=== PATIENT | male | born 1955 | race Hispanic/Latino ===

== ENCOUNTER 2018-01-11 06:48 | Inpatient (IN) | payer OTHER ==
[2018-01-11 06:49] VITALS: BMI 46.2
[2018-01-11] MEDS ORDERED: Sodium Chloride 0.9% 1,000 ML IV SCH (07:30)
--- NOTE | 2018-01-11 07:56 | C.PDOC ---
History Of Present Illness 62 year old male with PMHx of CHF, COPD, HTN, and chronic back pain presents to the ED complaining of "moderate back pain" rated 3/10. Reports "the people in my house are stealing my medications". Requesting Aspirin for pain. Denies any weakness, numbness, bowel or bladder dysfunction, or urinary symptoms. Requesting his sister in law to be called to take him home. Time Seen by Provider: 01/11/18 07:32 Chief Complaint (Nursing): Back Pain History Per: Patient History/Exam Limitations: no limitations Onset/Duration Of Symptoms: Days Current Symptoms Are (Timing): Still Present Quality Of Discomfort: "Pain" Severity: Moderate Pain Scale Rating Of: 3 Previous Symptoms: Chronic Pain Associated Symptoms: None Past Medical History Reviewed: Historical Data, Nursing Documentation, Vital Signs Vital Signs: Last Vital Signs Temp 97.9 F 01/11/18 06:53 Pulse 90 01/11/18 06:53 Resp 20 01/11/18 06:53 BP 116/62 01/11/18 06:53 Pulse Ox 95 01/11/18 06:53 - Medical History PMH: COPD, HTN, Sleep Apnea, Chronic Pain (Back Pain) Surgical History: Tonsillectomy Family History: States: No Known Family Hx - Social History Hx Tobacco Use: No Hx Alcohol Use: No (stopped 5 years ago) Hx Substance Use: No - Immunization History Hx Tetanus Toxoid Vaccination: No Hx Influenza Vaccination: No Hx Pneumococcal Vaccination: No Review Of Systems Except As Marked, All Systems Reviewed And Found Negative. Constitutional: Negative for: Fever, Chills Gastrointestinal: Negative for: Nausea, Vomiting, Diarrhea Genitourinary: Negative for: Dysuria, Incontinence, Hematuria Musculoskeletal: Positive for: Back Pain Neurological: Negative for: Weakness, Numbness Physical Exam - Physical Exam Appears: Non-toxic, No Acute Distress, Unkempt Skin: Warm, Dry, No Rash Head: Atraumatic, Normacephalic Eye(s): bilateral: Normal Inspection Nose: Normal Oral Mucosa: Dry Neck: Normal ROM, Supple Chest: Symmetrical Cardiovascular: Rhythm Regular Respiratory: No Rales, No Rhonchi, No Wheezing, Other (ormal inspiratory effort, Lungs clear to auscultation) Gastrointestinal/Abdominal: Soft, No Tenderness Back: No CVA Tenderness, No Vertebral Tenderness, No Paraspinal Tenderness Extremity: Normal ROM, Pedal Edema, Other (erythema noted to b/l lower extremities, more on the right. scattered abrasions along left lateral leg ) Neurological/Psych: Oriented x3, Normal Speech Gait: Steady ED Course And Treatment - Laboratory Results Result Diagrams: 01/13/18 11:24 01/15/18 11:25 ECG: Interpreted By Me, Viewed By Me ECG Rhythm: Sinus Rhythm ECG Interpretation: No Changes From Prior Interpretation Of ECG: Normal intervals. IVCD Rate From EC O2 Sat by Pulse Oximetry: 95 (RA) Pulse Ox Interpretation: Normal - Radiology CXR: Interpreted by Me, Viewed By Me CXR Interpretation: Yes: No Acute Disease, Other (Rotated) - Other Rad LS Spine X-Ray: Viewed By Me, Read By Radiologist Interpretation: IMPRESSION: No acute findings related to/accounting for the clinical presentation. No significant interval change compared to the prior examination(s). - CT Scan/US CT Head Other Rad Studies (CT/US): Read By Radiologist, Radiology Report Reviewed CT/US Interpretation: IMPRESSION: Nonspecific white matter changes. Tiny chronic appearing left basal ganglia lacunar infarct. Small opacification/fluid within left mastoid air cells. Correlate clinically for history of mastoiditis. Medical Decision Making Medical Decision Making: Plan - EKG - CXR - Head CT - Tylenol 975mg PO - XR LS spine - Crisis Eval 0810 Attempting to call sister in law to pick patient up. 0900 ED nurse spoke with in on the phone. States she is not able to pick him up because she is out of state. Case management called. 1015 Case management by bedside evaluating patient. Case Mgmt spoke with sister in law who stated there is no one to take care of patient at home. She also said he gets treated at [facility] for renal cell carcinoma with lung metastasis and is supposed to have a home health aide but he does not qualify for medicaid. Case Mgmt recommended to order labs. 0205 Duplex tests ordered for B/L lower extremities. Patient refused the one on the left. [address] Fofana, Medicine. Agrees to admit patient under his service. Disposition Counseled Patient/Family Regarding: Studies Performed, Diagnosis - Disposition Disposition: HOSPITALIZED Disposition Time: 14:13 Condition: STABLE - Clinical Impression Clinical Impression: Low back pain, Dehydration, Renal cancer - Scribe Statement The provider has reviewed the documentation as recorded by the Scribe Leigh Cunningham All medical record entries made by the Scribe were at my direction and personally dictated by me. I have reviewed the chart and agree that the record accurately reflects my personal performance of the history, physical exam, medical decision making, and the department course for this patient. I have also personally directed, reviewed, and agree with the discharge instructions and disposition.
[2018-01-11 10:52] LABS: BASO # 0.1 K/uL (0.0-0.2); BASO % 1.3 % (0.0-2.0); EOS # 0.1 K/uL (0.0-0.7); EOS % 1.4 % (0.0-4.0); HEMOGLOBIN 12.9 g/dL (12.0-18.0); LYMPH # 1.4 K/uL (1.0-4.3); LYMPH % 15.9 % (20.0-40.0); MEAN CELL VOLUME 84.3 fL (80.0-94.0); MEAN CORPUSCULAR HEMOGLOBIN 28.6 pg (27.0-31.0); MEAN CORPUSCULAR HGB CONC 33.9 g/dL (33.0-37.0); MEAN PLATELET VOLUME 7.7 fL (7.2-11.7); MONO # 0.8 K/uL (0.0-0.8); MONO % 9.3 % (0.0-10.0); NEUT # 6.1 K/uL (1.8-7.0); NEUT % 72.1 % (50.0-75.0); NRBC % 0.1 % (0.0-2.0); RBC 4.49 Mil/uL (4.40-5.90); RED CELL DISTRIBUTION WIDTH 14.9 % (11.5-14.5); WHITE BLOOD COUNT 8.5 K/uL (4.8-10.8)
[2018-01-11 11:46] LABS: GRANULAR CAST 1 /lpf (0-1); SQUAMOUS EPITHIAL < 1 /hpf (0-5); URINE BACTERIA OCC (<OCC); URINE BILIRUBIN NEGATIVE (NEGATIVE); URINE BLOOD 2+ (NEGATIVE); URINE CLARITY Hazy (Clear); URINE COLOR Yellow (YELLOW); URINE GLUCOSE (UA) NORMAL (Normal); URINE LEUKOCYTE ESTERASE NEG Leu/uL (Negative); URINE PROTEIN 1+ mg/dL (NEGATIVE); URINE UROBILINOGEN NORMAL mg/dL (0.2-1.0)
[2018-01-11 11:51] LABS: BLOOD UREA NITROGEN 31 mg/dL (9-20); GFR NON-AFRICAN AMERICAN 38
[2018-01-11 11:52] LABS: ALB/GLOB RATIO 1.1 (1.0-2.1); ALBUMIN 3.8 g/dL (3.5-5.0); ALT/SGPT 116 U/L (21-72); AST/SGOT 143 U/L (17-59); CALCIUM 9.2 mg/dl (8.6-10.4)
[2018-01-11 11:56] LABS: ACETAMINOPHEN < 10.0 ug/mL (10.0-30.0); SALICYLATE < 1.0 [, mg/dL 1]
[2018-01-11 12:18] LABS: BARBITURATES, UR NEGATIVE (NEGATIVE); BENZODIAZEPINES, UR NEGATIVE (NEGATIVE)
[2018-01-11 12:19] LABS: OPIATES, UR POSITIVE (NEGATIVE); PHENCYCLIDINE, UR NEGATIVE (NEGATIVE)
--- NOTE | 2018-01-11 12:48 | CT ---
Date of service: 01/11/2018 PROCEDURE: CT HEAD WITHOUT CONTRAST. HISTORY: ams COMPARISON: None available. TECHNIQUE: Axial computed tomography images were obtained through the head/brain without intravenous contrast. Radiation dose: Total exam DLP = 1483.31 mGy-cm. This CT exam was performed using one or more of the following dose reduction techniques: Automated exposure control, adjustment of the mA and/or kV according to patient size, and/or use of iterative reconstruction technique. FINDINGS: HEMORRHAGE: No intracranial hemorrhage. BRAIN: No mass effect or edema. Tiny chronic appearing left basal ganglia lacunar infarct. Scattered periventricular and subcortical white matter hypodensities, which are nonspecific, but often seen with chronic microvascular ischemic disease. Please note that MRI with diffusion imaging is more sensitive in the detection of acute ischemic event. VENTRICLES: No hydrocephalus. CALVARIUM: Unremarkable. PARANASAL SINUSES: Mucosal polyp/retention cyst within the left maxillary sinus. MASTOID AIR CELLS: Small fluid/opacification within the left mastoid air cells. The right mastoid air cells appear grossly clear. OTHER FINDINGS: None. IMPRESSION: Nonspecific white matter changes. Tiny chronic appearing left basal ganglia lacunar infarct. Small opacification/fluid within left mastoid air cells. Correlate clinically for history of mastoiditis.
--- NOTE | 2018-01-11 14:37 | RAD ---
Date of service: 01/11/2018 PROCEDURE: CHEST RADIOGRAPH, 1 VIEW HISTORY: Detox/Psy COMPARISON: 09/17/2013 FINDINGS: LUNGS: Clear. PLEURA: No pneumothorax or pleural fluid seen. CARDIOVASCULAR: No aortic atherosclerotic calcification present. Cardiomegaly. No evidence of acute, significant cardiovascular disease. OSSEOUS STRUCTURES: No significant abnormalities. VISUALIZED UPPER ABDOMEN: Normal. OTHER FINDINGS: None. IMPRESSION: No active disease. No acute/significant interval changes. Concordant results with the preliminary interpretation rendered by the emergency department physician procedure.
--- NOTE | 2018-01-11 14:44 | RAD ---
Date of service: 01/11/2018 PROCEDURE: Radiographs of the Lumbar Spine. HISTORY: pain COMPARISON: 10/21/2014 CT abdomen and pelvis includes lumbar spine FINDINGS: BONES: Loss of height vertebral bodies apparent on the current study unchanged compared to the prior study. DISC SPACES: Stable degenerative changes lumbar spine including vacuum disc phenomenon L4-5. OTHER FINDINGS: Calcified nonaneurysmal abdominal aorta. IMPRESSION: No acute findings related to/accounting for the clinical presentation. No significant interval change compared to the prior examination(s).
--- NOTE | 2018-01-11 15:54 | CP.PCM.PN ---
Subjective - Date & Time of Evaluation Date of Evaluation: 01/11/18 Time of Evaluation: 15:50 - Subjective Subjective: This is a 62 yo male with past medical hx of renal cell carcinoma with mets, morbid obesity, chronic back pain, diabetes, hypertension, dyslipidemia, presenting with acute on chronic low back pain. Pt is an unreliable historian. He has a history of kidney cancer. He has had a right nephrectomy. He has not had good follow up. He was recently being evaluated at [facility]. His primary care doctor is Dr. Ortiz. He last saw a few months ago. PMH: renal cell carcinoma with mets, diagnosed in 2008 morbid obesity, likely metabolic syndrome, dm, htn, dyslipidemia PSH: right nephrectomy Allergies: NKDA FH: Denies Home meds: pain medication, lisinopril, gabapentin, metformin, flexeril Social hx: Former smoker. Former drinker. Denies drug use. Objective - Vital Signs/Intake and Output Vital Signs (last 24 hours): Temp Pulse Resp BP Pulse Ox 98.2 F 95 H 17 122/63 95 01/11/18 15:14 01/11/18 15:14 01/11/18 15:14 01/11/18 15:14 01/11/18 15:21 - Medications Medications: Current Medications Aspirin (Ecotrin) 81 mg PO DAILY BENNY Clopidogrel Bisulfate (Plavix) 75 mg PO DAILY BENNY Pantoprazole Sodium (Protonix Inj) 40 mg IVP DAILY BENNY - Labs Labs: 01/11/18 10:44 01/11/18 10:44 - Constitutional Appears: Unkempt, Chronically Ill - Head Exam Head Exam: ATRAUMATIC, NORMAL INSPECTION, NORMOCEPHALIC - Eye Exam Eye Exam: EOMI - ENT Exam ENT Exam: Mucous Membranes Moist - Respiratory Exam Respiratory Exam: absent: Respiratory Distress - Cardiovascular Exam Cardiovascular Exam: +S1, +S2 - GI/Abdominal Exam GI & Abdominal Exam: Soft, Normal Bowel Sounds. absent: Tenderness - Extremities Exam Extremities Exam: absent: Full ROM, Normal Inspection Additional comments: positive stasis dermatitis - Back Exam Back Exam: NORMAL INSPECTION - Neurological Exam Neurological Exam: Alert, Awake, CN II-XII Intact, Oriented x3 - Psychiatric Exam Psychiatric exam: Flat Affect - Skin Skin Exam: Dry, Intact, Normal Color, Warm Assessment and Plan - Assessment and Plan (Free Text) Assessment: This is a 62 yo male with 1. Back pain -PT/OT 2. stasis dermatitis/PVD -dopplers pending -vascular sx consult. Dr. Reyes. recs appreciated. 3. hx of DM -a1c -lipid panel -hold metformin 4. hx of dyslipidemia -a1c -lipid panel 5. hx of renal cell cancer -heme/onc consult. Dr. Willoughby. recs appreciated. -nephrology consult. Dr. Leyva. recs appreciated. 6. transaminitis -abdominal ultrasound -GI consult. recs appreciated. Dr. Liang 7. hx of COPD -duonebs -needs PFTs -pulmonary Dr. Fofana also on case. 8. hx of sleep apnea -needs sleep study 9. morbid obesity -diet and lifestyle modifications 6. GI/DVT ppx -protonix daily discussed with Dr. Fofana.
--- NOTE | 2018-01-11 15:58 | VASCLAB ---
Date of service: 01/11/2018 PROCEDURE: Right Lower Extremity Venous Duplex Exam. HISTORY: swelling PRIORS: None. TECHNIQUE: Right common femoral, femoral, popliteal and posterior tibial, peroneal and great saphenous veins were evaluated. Flow was assessed with color Doppler, compressibility, assessment of phasic flow and augmentation response. Report prepared by SHANIA Oneal, RVT FINDINGS: RIGHT: 1. Common Femoral Vein: 1.1. Compressibility - Fully compressible: Thrombus - None: Flow - Phasic: Augmentation -Normal: Reflux - None. 2. Femoral Vein: 2.1. Compressibility - Fully compressible: Thrombus - None: Flow - Phasic: Augmentation -Normal: Reflux - None. 3. Popliteal Vein: 3.1. Compressibility - Fully compressible: Thrombus - None: Flow - Phasic: Augmentation -Normal: Reflux - None. 4. Posterior Tibial Vein: 4.1. Compressibility - Fully compressible: Thrombus - None: Flow - Phasic: Augmentation -Normal: Reflux - None. 5. Peroneal Vein: 5.1. Compressibility - Fully compressible: Thrombus - None: Flow - Phasic: Augmentation -Normal: Reflux - None. 6. Great Saphenous Vein: 6.1. Compressibility - Fully compressible: Thrombus -None: Flow - Phasic: Augmentation - Normal: Reflux - None. OTHER FINDINGS: IMPRESSION: No evidence of deep or superficial vein thrombosis of the right lower extremity with excellent venous flow. Normal valve function noted of the right side. Normal venous flow noted in the left common femoral vein.
[2018-01-11] MEDS ORDERED: Albuterol-Ipratrop 3 mg / 0.5 (3 ml) UD INH PRN (16:01)
[2018-01-11] MEDS: Dextrose 5%/0.45% NS 1,000 ML IV SCH (17:16)
[2018-01-11] MEDS: oxyCODONE 10 mg Immediate Release Tab PO PRN ×2 (17:29→23:47)
[2018-01-11 17:48] LABS: IRON 45 ug/dL (49-181)
[2018-01-11 17:49] LABS: GAMMA GLUTAMYL TRANSPEPTIDASE 52 U/L (8-78); HDL CHOLESTEROL 52 mg/dL (30-70)
[2018-01-11 17:57] LABS: % IRON SATURATION 21 (20-55); TOTAL IRON BINDING CAPACITY 214 ug/dL (250-450)
[2018-01-11 18:05] LABS: LDL CHOLESTEROL 60 mg/dL (0-129)
[2018-01-11 18:25] LABS: HEPATITIS B SURFACE AG Negative (NEGATIVE)
[2018-01-11 18:31] LABS: HEPATITIS A IGM NEGATIVE (NEGATIVE); HEPATITIS B CORE AB NEGATIVE (NEGATIVE)
[2018-01-11] MEDS: Lidocaine 2% Jelly (30 ml) TOP SCH (18:45)
[2018-01-11 19:58] LABS: HEPATITIS C ANTIBODY REACTIVE (NEGATIVE)
--- NOTE | 2018-01-11 20:43 | CP.PCM.CON ---
History of Present Illness - History of Present Illness History of Present Illness: Vascular Surgery Consult Note for Dr. Reyes This is a 62M PMH, with a PMH of Renal CA, now with with lung metastasis, presents with complaints of lower extremity pain and swelling, onset one month ago. He reports that its painful to the touch and that it has never happened before. Of note, He sleeps with 4-5 pillows per night and can walk about 6 feet before becoming short of breath. He reports that he does not want to elevate his feet because it then causes back pain. Ultrasounds show no evidence of thrombus in the LE. He denies, [place], fever, chills,chest pain, abdominal pain, N/V/D, SOB, extremity weakness PMHx: DM, CHF,depression, renal caner PSH: Nephrectomy, tonsilectomy, miniscus repair Social Former smoker (40 pack yrs, quit in 2007) Alcohol: Denies (h/o of drinking 2 cases of beer/week. quit in 2007. Review of Systems - Review of Systems All systems: reviewed and no additional remarkable complaints except Review of Systems: 12 point review of symptoms conducted and negative except for SOB on exertion, head ache, diffuse muscle aches, back pain, lower extremity swelling, pain and erythema. - Cardiovascular Cardiovascular: Dyspnea on Exertion, Leg Edema. absent: Chest Pain, Chest Pain with Activity - Respiratory Respiratory: Dyspnea on Exertion - Gastrointestinal Gastrointestinal: absent: Abdominal Pain, Constipation, Diarrhea, Nausea, Vomiting - Musculoskeletal Musculoskeletal: Back Pain Additional comments: Lower extremity weakness - Integumentary Integumentary: Dry Skin - Psychiatric Psychiatric: Depression, Hopelessness Past Patient History - Infectious Disease Hx of Infectious Diseases: None - Past Medical History & Family History Past Medical History?: Yes - Past Social History Smoking Status: Former Smoker - CARDIAC Hx Hypertension: Yes - PULMONARY Hx Chronic Obstructive Pulmonary Disease (COPD): Yes Hx Sleep Apnea: Yes - NEUROLOGICAL Hx Neurological Disorder: No Hx Paralysis: No - HEENT Hx HEENT Problems: No - RENAL Hx Chronic Kidney Disease: Yes Other/Comment: Renal Ca of R kidney, nephrectomy - ENDOCRINE/METABOLIC Hx Endocrine Disorders: No Hx Diabetes Mellitus Type 2: Yes - HEMATOLOGICAL/ONCOLOGICAL Hx Blood Transfusions: No - INTEGUMENTARY Hx Dermatological Problems: No - MUSCULOSKELETAL/RHEUMATOLOGICAL Hx Musculoskeletal Disorders: Yes Hx Back Pain: Yes Hx Falls: Yes Hx Unsteady Gait: Yes - GASTROINTESTINAL Hx Gastrointestinal Disorders: No - GENITOURINARY/GYNECOLOGICAL Hx Genitourinary Disorders: No - PSYCHIATRIC Hx Substance Use: No - SURGICAL HISTORY Hx Tonsillectomy: Yes - ANESTHESIA Hx Anesthesia: Yes Hx Anesthesia Reactions: No Hx Malignant Hyperthermia: No Has any member of the family had a problem w/ anesthesia?: No Meds Allergies/Adverse Reactions: Allergies Allergy/AdvReac Type Severity Reaction Status Date / Time No Known Allergies Allergy Verified 01/11/18 06:58 - Medications Medications: Current Medications Albuterol/Ipratropium (Duoneb 3 Mg/0.5 Mg (3 Ml) Ud) 3 ml INH RQ6 PRN PRN Reason: Shortness of Breath Aspirin (Ecotrin) 81 mg PO DAILY BENNY Enoxaparin Sodium (Lovenox) 40 mg SC DAILY BENNY Famotidine (Pepcid) 20 mg IVP Q12H [facility] Dextrose/Sodium Chloride (Dextrose 5%/0.45% Ns 1000 Ml) 1,000 mls @ 100 mls/hr IV .Q10H [facility] Last Admin: 01/11/18 17:16 Dose: 100 mls/hr Lidocaine HCl (Xylocaine 2%) 1 ea TOP BID BENNY Oxycodone HCl (Oxycodone Immediate Release Tab) 20 mg PO Q6 PRN PRN Reason: Pain, severe (8-10) Last Admin: 01/11/18 17:29 Dose: 20 mg Pneumococcal Polyvalent Vaccine (Pneumovax 23 Vaccine) 0.5 ml IM .ONCE ONE Stop: 01/13/18 10:01 Physical Exam - Constitutional Appears: Non-toxic, No Acute Distress - Head Exam Head Exam: ATRAUMATIC, NORMOCEPHALIC - Eye Exam Eye Exam: EOMI - ENT Exam ENT Exam: Mucous Membranes Moist - Respiratory Exam Respiratory Exam: NORMAL BREATHING PATTERN - Cardiovascular Exam Cardiovascular Exam: +S1, +S2 - GI/Abdominal Exam GI & Abdominal Exam: Soft. absent: Distended, Firm, Guarding, Hernia, Tenderness - Neurological Exam Neurological exam: Alert, Oriented x3 - Psychiatric Exam Psychiatric exam: Normal Affect, Normal Mood - Skin Skin Exam: Dry, Intact Results - Vital Signs Recent Vital Signs: Last Vital Signs Temp 97.9 F 01/11/18 17:00 Pulse 91 H 01/11/18 17:00 Resp 20 01/11/18 17:00 BP 111/77 01/11/18 17:00 Pulse Ox 95 01/11/18 17:50 - Labs Result Diagrams: 01/11/18 10:44 01/11/18 10:44 Labs: Laboratory Results - last 24 hr 01/11/18 01/11/18 01/11/18 10:44 10:44 10:44 WBC 8.5 RBC 4.49 Hgb 12.9 D Hct 37.9 MCV 84.3 D MCH 28.6 MCHC 33.9 RDW 14.9 H Plt Count 257 MPV 7.7 Neut % (Auto) 72.1 Lymph % (Auto) 15.9 L [place] % (Auto) 9.3 Eos % (Auto) 1.4 Baso % (Auto) 1.3 Neut # (Auto) 6.1 Lymph # (Auto) 1.4 [place] # (Auto) 0.8 Eos # (Auto) 0.1 Baso # (Auto) 0.1 Sodium 138 Potassium 4.5 Chloride 106 Carbon Dioxide 25 Anion Gap 12 BUN 31 H Creatinine 1.8 H Est GFR ( Amer) 46 Est GFR (Non-Af Amer) 38 POC Glucose (mg/dL) Random Glucose 91 Hemoglobin A1c Calcium 9.2 Phosphorus 4.3 Magnesium 2.6 H Iron TIBC % Saturation Total Bilirubin 1.5 H GGT AST 143 H D ALT 116 H D Alkaline Phosphatase 94 Troponin I < 0.0120 Total Protein 7.4 Albumin 3.8 Globulin 3.5 Albumin/Globulin Ratio 1.1 Triglycerides Cholesterol LDL Cholesterol Direct HDL Cholesterol Urine Color Urine Clarity Urine pH Ur Specific [place] Urine Protein Urine Glucose (UA) Urine Ketones Urine Blood Urine Nitrate Urine Bilirubin Urine Urobilinogen Ur Leukocyte Esterase Urine WBC (Auto) Urine RBC (Auto) Ur Squamous Epith Cells Urine Bacteria Hyaline Casts Granular Casts (Auto) Salicylates < 1.0 Urine Opiates Screen Urine Methadone Screen Acetaminophen < 10.0 L Ur Barbiturates Screen Ur Phencyclidine Scrn Ur Amphetamines Screen U Benzodiazepines Scrn U Oth Cocaine Metabols U Cannabinoids Screen Alcohol, Quantitative < 10 Hepatitis A IgM Ab Hep Bs Antigen Hep B Core IgM Ab Hepatitis C Antibody 01/11/18 01/11/18 01/11/18 11:20 11:20 17:04 WBC RBC Hgb Hct MCV MCH MCHC RDW Plt Count MPV Neut % (Auto) Lymph % (Auto) [place] % (Auto) Eos % (Auto) Baso % (Auto) Neut # (Auto) Lymph # (Auto) [place] # (Auto) Eos # (Auto) Baso # (Auto) Sodium Potassium Chloride Carbon Dioxide Anion Gap BUN Creatinine Est GFR ( Amer) Est GFR (Non-Af Amer) POC Glucose (mg/dL) 97 Random Glucose Hemoglobin A1c Calcium Phosphorus Magnesium Iron TIBC % Saturation Total Bilirubin GGT AST ALT Alkaline Phosphatase Troponin I Total Protein Albumin Globulin Albumin/Globulin Ratio Triglycerides Cholesterol LDL Cholesterol Direct HDL Cholesterol Urine Color Yellow Urine Clarity Hazy Urine pH 5.0 Ur Specific [place] 1.017 Urine Protein 1+ H Urine Glucose (UA) Normal Urine Ketones 1+ H Urine Blood 2+ H Urine Nitrate Negative Urine Bilirubin Negative Urine Urobilinogen Normal Ur Leukocyte Esterase Neg Urine WBC (Auto) 2 Urine RBC (Auto) 2 Ur Squamous Epith Cells < 1 Urine Bacteria Occ H Hyaline Casts 3-5 H Granular Casts (Auto) 1 Salicylates Urine Opiates Screen Positive H Urine Methadone Screen Negative Acetaminophen Ur Barbiturates Screen Negative Ur Phencyclidine Scrn Negative Ur Amphetamines Screen Negative U Benzodiazepines Scrn Negative U Oth Cocaine Metabols Negative U Cannabinoids Screen Negative Alcohol, Quantitative Hepatitis A IgM Ab Hep Bs Antigen Hep B Core IgM Ab Hepatitis C Antibody 01/11/18 01/11/18 01/11/18 17:21 17:21 17:21 WBC RBC Hgb Hct MCV MCH MCHC RDW Plt Count MPV Neut % (Auto) Lymph % (Auto) [place] % (Auto) Eos % (Auto) Baso % (Auto) Neut # (Auto) Lymph # (Auto) [place] # (Auto) Eos # (Auto) Baso # (Auto) Sodium Potassium Chloride Carbon Dioxide Anion Gap BUN Creatinine Est GFR ( Amer) Est GFR (Non-Af Amer) POC Glucose (mg/dL) Random Glucose Hemoglobin A1c Calcium Phosphorus Magnesium Iron 45 L TIBC 214 L % Saturation 21 21 Total Bilirubin GGT 52 AST ALT Alkaline Phosphatase Troponin I Total Protein Albumin Globulin Albumin/Globulin Ratio Triglycerides 83 D Cholesterol 119 LDL Cholesterol Direct 60 HDL Cholesterol 52 Urine Color Urine Clarity Urine pH Ur Specific [place] Urine Protein Urine Glucose (UA) Urine Ketones Urine Blood Urine Nitrate Urine Bilirubin Urine Urobilinogen Ur Leukocyte Esterase Urine WBC (Auto) Urine RBC (Auto) Ur Squamous Epith Cells Urine Bacteria Hyaline Casts Granular Casts (Auto) Salicylates Urine Opiates Screen Urine Methadone Screen Acetaminophen Ur Barbiturates Screen Ur Phencyclidine Scrn Ur Amphetamines Screen U Benzodiazepines Scrn U Oth Cocaine Metabols U Cannabinoids Screen Alcohol, Quantitative Hepatitis A IgM Ab Hep Bs Antigen Hep B Core IgM Ab Hepatitis C Antibody 01/11/18 01/11/18 17:21 17:21 WBC RBC Hgb Hct MCV MCH MCHC RDW Plt Count MPV Neut % (Auto) Lymph % (Auto) [place] % (Auto) Eos % (Auto) Baso % (Auto) Neut # (Auto) Lymph # (Auto) [place] # (Auto) Eos # (Auto) Baso # (Auto) Sodium Potassium Chloride Carbon Dioxide Anion Gap BUN Creatinine Est GFR ( Amer) Est GFR (Non-Af Amer) POC Glucose (mg/dL) Random Glucose Hemoglobin A1c 5.8 Calcium Phosphorus Magnesium Iron TIBC % Saturation Total Bilirubin GGT AST ALT Alkaline Phosphatase Troponin I Total Protein Albumin Globulin Albumin/Globulin Ratio Triglycerides Cholesterol LDL Cholesterol Direct HDL Cholesterol Urine Color Urine Clarity Urine pH Ur Specific [place] Urine Protein Urine Glucose (UA) Urine Ketones Urine Blood Urine Nitrate Urine Bilirubin Urine Urobilinogen Ur Leukocyte Esterase Urine WBC (Auto) Urine RBC (Auto) Ur Squamous Epith Cells Urine Bacteria Hyaline Casts Granular Casts (Auto) Salicylates Urine Opiates Screen Urine Methadone Screen Acetaminophen Ur Barbiturates Screen Ur Phencyclidine Scrn Ur Amphetamines Screen U Benzodiazepines Scrn U Oth Cocaine Metabols U Cannabinoids Screen Alcohol, Quantitative Hepatitis A IgM Ab Negative Hep Bs Antigen Negative Hep B Core IgM Ab Negative Hepatitis C Antibody Reactive Assessment & Plan - Assessment and Plan (Free Text) Assessment: 62M with metastatic cancer and lower extremity edema Suggest echo to rule out cardiac cause Recommend LE elevation Recommend LE Compression Further recs per Dr. Eric Veliz PGY3
--- NOTE | 2018-01-11 22:21 | CP.PCM.CON ---
History of Present Illness - History of Present Illness History of Present Illness: 62 year old male with a history of stage IV renal cell carcinoma with lung metastasis, DM, depression, CHF, presenting with lower extremity pain. The patient notes to being diagnosed with renal cell carcinoma and underwent a nephrectomy in 2007. In the last year he was found to have lung metastasis confirmed by percutaneous needly biopsy at [facility]. He is awaiting an appointment with a medical oncologist at [facility] in January. He notes to progressive dyspnea and pain with exertion. He also notes to falls related to his LE pain. Past medical history: stage IV renal cell carcinoma with lung metastasis, DM, depression, CHF. Past surgical history: Nephrectomy, tonsilectomy, miniscus repair Family history: Brother with laryngeal cancer, both parents had unknown cancer Social history: Former tobacco and alcohol abuse. Allergies: NKA Review of systems: All remaining review of systems including HEENT, cardiovascular, respiratory, gastrointestinal, genitourinary, musculoskeletal, dermatologic, neurologic, and psychiatric are negative unless mentioned in the HPI. Past Patient History - Infectious Disease Hx of Infectious Diseases: None - Past Medical History & Family History Past Medical History?: Yes - Past Social History Smoking Status: Former Smoker - CARDIAC Hx Hypertension: Yes - PULMONARY Hx Chronic Obstructive Pulmonary Disease (COPD): Yes Hx Sleep Apnea: Yes - NEUROLOGICAL Hx Neurological Disorder: No Hx Paralysis: No - HEENT Hx HEENT Problems: No - RENAL Hx Chronic Kidney Disease: Yes Other/Comment: Renal Ca of R kidney, nephrectomy - ENDOCRINE/METABOLIC Hx Endocrine Disorders: No Hx Diabetes Mellitus Type 2: Yes - HEMATOLOGICAL/ONCOLOGICAL Hx Blood Transfusions: No - INTEGUMENTARY Hx Dermatological Problems: No - MUSCULOSKELETAL/RHEUMATOLOGICAL Hx Musculoskeletal Disorders: Yes Hx Back Pain: Yes Hx Falls: Yes Hx Unsteady Gait: Yes - GASTROINTESTINAL Hx Gastrointestinal Disorders: No - GENITOURINARY/GYNECOLOGICAL Hx Genitourinary Disorders: No - PSYCHIATRIC Hx Substance Use: No - SURGICAL HISTORY Hx Tonsillectomy: Yes - ANESTHESIA Hx Anesthesia: Yes Hx Anesthesia Reactions: No Hx Malignant Hyperthermia: No Has any member of the family had a problem w/ anesthesia?: No Meds Allergies/Adverse Reactions: Allergies Allergy/AdvReac Type Severity Reaction Status Date / Time No Known Allergies Allergy Verified 01/11/18 06:58 - Medications Medications: Current Medications Albuterol/Ipratropium (Duoneb 3 Mg/0.5 Mg (3 Ml) Ud) 3 ml INH RQ6 PRN PRN Reason: Shortness of Breath Aspirin (Ecotrin) 81 mg PO DAILY [facility] Enoxaparin Sodium (Lovenox) 40 mg SC DAILY [facility] Famotidine (Pepcid) 20 mg IVP Q12H [facility] Dextrose/Sodium Chloride (Dextrose 5%/0.45% Ns 1000 Ml) 1,000 mls @ 100 mls/hr IV .Q10H [facility] Last Admin: 01/11/18 17:16 Dose: 100 mls/hr Lidocaine HCl (Xylocaine 2%) 1 ea TOP BID [facility] Last Admin: 01/11/18 18:45 Dose: 1 appl Oxycodone HCl (Oxycodone Immediate Release Tab) 20 mg PO Q6 PRN PRN Reason: Pain, severe (8-10) Last Admin: 01/11/18 17:29 Dose: 20 mg Pneumococcal Polyvalent Vaccine (Pneumovax 23 Vaccine) 0.5 ml IM .ONCE ONE Stop: 01/13/18 10:01 Physical Exam - Head Exam Head Exam: ATRAUMATIC - Eye Exam Eye Exam: Normal appearance - ENT Exam ENT Exam: Mucous Membranes Dry - Respiratory Exam Respiratory Exam: NORMAL BREATHING PATTERN - Cardiovascular Exam Cardiovascular Exam: +S1, +S2 - GI/Abdominal Exam GI & Abdominal Exam: Normal Bowel Sounds - Extremities Exam Extremities exam: Positive for: pedal edema - Neurological Exam Neurological exam: Oriented x3 - Psychiatric Exam Psychiatric exam: Normal Affect, Normal Mood - Skin Skin Exam: Warm Results - Vital Signs Recent Vital Signs: Last Vital Signs Temp 97.9 F 01/11/18 17:00 Pulse 91 H 01/11/18 17:00 Resp 20 01/11/18 17:00 BP 111/77 01/11/18 17:00 Pulse Ox 95 01/11/18 17:50 - Labs Result Diagrams: 01/11/18 10:44 01/11/18 10:44 Labs: Laboratory Results - last 24 hr 01/11/18 01/11/18 01/11/18 10:44 10:44 10:44 WBC 8.5 RBC 4.49 Hgb 12.9 D Hct 37.9 MCV 84.3 D MCH 28.6 MCHC 33.9 RDW 14.9 H Plt Count 257 MPV 7.7 Neut % (Auto) 72.1 Lymph % (Auto) 15.9 L [place] % (Auto) 9.3 Eos % (Auto) 1.4 Baso % (Auto) 1.3 Neut # (Auto) 6.1 Lymph # (Auto) 1.4 [place] # (Auto) 0.8 Eos # (Auto) 0.1 Baso # (Auto) 0.1 Sodium 138 Potassium 4.5 Chloride 106 Carbon Dioxide 25 Anion Gap 12 BUN 31 H Creatinine 1.8 H Est GFR ( Amer) 46 Est GFR (Non-Af Amer) 38 POC Glucose (mg/dL) Random Glucose 91 Hemoglobin A1c Calcium 9.2 Phosphorus 4.3 Magnesium 2.6 H Iron TIBC % Saturation Total Bilirubin 1.5 H GGT AST 143 H D ALT 116 H D Alkaline Phosphatase 94 Troponin I < 0.0120 Total Protein 7.4 Albumin 3.8 Globulin 3.5 Albumin/Globulin Ratio 1.1 Triglycerides Cholesterol LDL Cholesterol Direct HDL Cholesterol Urine Color Urine Clarity Urine pH Ur Specific [place] Urine Protein Urine Glucose (UA) Urine Ketones Urine Blood Urine Nitrate Urine Bilirubin Urine Urobilinogen Ur Leukocyte Esterase Urine WBC (Auto) Urine RBC (Auto) Ur Squamous Epith Cells Urine Bacteria Hyaline Casts Granular Casts (Auto) Salicylates < 1.0 Urine Opiates Screen Urine Methadone Screen Acetaminophen < 10.0 L Ur Barbiturates Screen Ur Phencyclidine Scrn Ur Amphetamines Screen U Benzodiazepines Scrn U Oth Cocaine Metabols U Cannabinoids Screen Alcohol, Quantitative < 10 Hepatitis A IgM Ab Hep Bs Antigen Hep B Core IgM Ab Hepatitis C Antibody 01/11/18 01/11/18 01/11/18 11:20 11:20 17:04 WBC RBC Hgb Hct MCV MCH MCHC RDW Plt Count MPV Neut % (Auto) Lymph % (Auto) [place] % (Auto) Eos % (Auto) Baso % (Auto) Neut # (Auto) Lymph # (Auto) [place] # (Auto) Eos # (Auto) Baso # (Auto) Sodium Potassium Chloride Carbon Dioxide Anion Gap BUN Creatinine Est GFR ( Amer) Est GFR (Non-Af Amer) POC Glucose (mg/dL) 97 Random Glucose Hemoglobin A1c Calcium Phosphorus Magnesium Iron TIBC % Saturation Total Bilirubin GGT AST ALT Alkaline Phosphatase Troponin I Total Protein Albumin Globulin Albumin/Globulin Ratio Triglycerides Cholesterol LDL Cholesterol Direct HDL Cholesterol Urine Color Yellow Urine Clarity Hazy Urine pH 5.0 Ur Specific [place] 1.017 Urine Protein 1+ H Urine Glucose (UA) Normal Urine Ketones 1+ H Urine Blood 2+ H Urine Nitrate Negative Urine Bilirubin Negative Urine Urobilinogen Normal Ur Leukocyte Esterase Neg Urine WBC (Auto) 2 Urine RBC (Auto) 2 Ur Squamous Epith Cells < 1 Urine Bacteria Occ H Hyaline Casts 3-5 H Granular Casts (Auto) 1 Salicylates Urine Opiates Screen Positive H Urine Methadone Screen Negative Acetaminophen Ur Barbiturates Screen Negative Ur Phencyclidine Scrn Negative Ur Amphetamines Screen Negative U Benzodiazepines Scrn Negative U Oth Cocaine Metabols Negative U Cannabinoids Screen Negative Alcohol, Quantitative Hepatitis A IgM Ab Hep Bs Antigen Hep B Core IgM Ab Hepatitis C Antibody 01/11/18 01/11/18 01/11/18 17:21 17:21 17:21 WBC RBC Hgb Hct MCV MCH MCHC RDW Plt Count MPV Neut % (Auto) Lymph % (Auto) [place] % (Auto) Eos % (Auto) Baso % (Auto) Neut # (Auto) Lymph # (Auto) [place] # (Auto) Eos # (Auto) Baso # (Auto) Sodium Potassium Chloride Carbon Dioxide Anion Gap BUN Creatinine Est GFR ( Amer) Est GFR (Non-Af Amer) POC Glucose (mg/dL) Random Glucose Hemoglobin A1c Calcium Phosphorus Magnesium Iron 45 L TIBC 214 L % Saturation 21 21 Total Bilirubin GGT 52 AST ALT Alkaline Phosphatase Troponin I Total Protein Albumin Globulin Albumin/Globulin Ratio Triglycerides 83 D Cholesterol 119 LDL Cholesterol Direct 60 HDL Cholesterol 52 Urine Color Urine Clarity Urine pH Ur Specific [place] Urine Protein Urine Glucose (UA) Urine Ketones Urine Blood Urine Nitrate Urine Bilirubin Urine Urobilinogen Ur Leukocyte Esterase Urine WBC (Auto) Urine RBC (Auto) Ur Squamous Epith Cells Urine Bacteria Hyaline Casts Granular Casts (Auto) Salicylates Urine Opiates Screen Urine Methadone Screen Acetaminophen Ur Barbiturates Screen Ur Phencyclidine Scrn Ur Amphetamines Screen U Benzodiazepines Scrn U Oth Cocaine Metabols U Cannabinoids Screen Alcohol, Quantitative Hepatitis A IgM Ab Hep Bs Antigen Hep B Core IgM Ab Hepatitis C Antibody 01/11/18 01/11/18 01/11/18 17:21 17:21 21:14 WBC RBC Hgb Hct MCV MCH MCHC RDW Plt Count MPV Neut % (Auto) Lymph % (Auto) [place] % (Auto) Eos % (Auto) Baso % (Auto) Neut # (Auto) Lymph # (Auto) Swift # (Auto) Eos # (Auto) Baso # (Auto) Sodium Potassium Chloride Carbon Dioxide Anion Gap BUN Creatinine Est GFR ( Amer) Est GFR (Non-Af Amer) POC Glucose (mg/dL) 96 Random Glucose Hemoglobin A1c 5.8 Calcium Phosphorus Magnesium Iron TIBC % Saturation Total Bilirubin GGT AST ALT Alkaline Phosphatase Troponin I Total Protein Albumin Globulin Albumin/Globulin Ratio Triglycerides Cholesterol LDL Cholesterol Direct HDL Cholesterol Urine Color Urine Clarity Urine pH Ur Specific [place] Urine Protein Urine Glucose (UA) Urine Ketones Urine Blood Urine Nitrate Urine Bilirubin Urine Urobilinogen Ur Leukocyte Esterase Urine WBC (Auto) Urine RBC (Auto) Ur Squamous Epith Cells Urine Bacteria Hyaline Casts Granular Casts (Auto) Salicylates Urine Opiates Screen Urine Methadone Screen Acetaminophen Ur Barbiturates Screen Ur Phencyclidine Scrn Ur Amphetamines Screen U Benzodiazepines Scrn U Oth Cocaine Metabols U Cannabinoids Screen Alcohol, Quantitative Hepatitis A IgM Ab Negative Hep Bs Antigen Negative Hep B Core IgM Ab Negative Hepatitis C Antibody Reactive Assessment & Plan (1) Renal cancer Assessment and Plan: with lung metastasis would benefit from outpatient immunotherapy to get an opinion at [facility] and may wish to be treated locally with tx outpatient f/u Status: Acute (2) Anemia Assessment and Plan: mild will check retic count, b12, folate, ferritin to further characterize Thank you for this interesting consult. Status: Acute
[2018-01-12] MEDS: Dextrose 5%/0.45% NS 1,000 ML IV SCH ×3 (04:00→23:50)
[2018-01-12] MEDS ORDERED: oxyCODONE 10 mg Immediate Release Tab PO ONE (04:10)
--- NOTE | 2018-01-12 06:38 | CP.PCM.CON ---
History of Present Illness - History of Present Illness History of Present Illness: 62 yo M w/ pmh of renal cell CA s/p R nephrectomy (2008) and reported recent metastasis, COPD (per previous record), presented with back and leg pain, nephrology being consulted for renal insufficiency; Patient reports coming to ED due to feeling of impending doom; also reporting increased leg swelling lately; gives history of following with Cancer [facility] since past 2 yrs for his renal cell CA but recently transferred his care to [facility] and was diagnosed with mets to his lung per CT guided biopsy; Patient otherwise reports his baseline serum creatinine ~1.8; denies any difficulty urinating but has noticed dark colored urine lately; takes pain meds but can't say which ones; appetite has been somewhat decreased due to constipation, no reported nausea/vomiting; Review of Systems - Constitutional Constitutional: Frequent Falls - EENT Additional comments: no dysphagia - Cardiovascular Cardiovascular: absent: Chest Pain, Palpitations - Gastrointestinal Gastrointestinal: As Per HPI - Genitourinary Genitourinary: As Per HPI - Musculoskeletal Musculoskeletal: Back Pain Additional comments: leg pains b/l - Neurological Additional comments: multiple falls - Psychiatric Psychiatric: Anxiety Past Patient History - Infectious Disease Hx of Infectious Diseases: None - Past Medical History & Family History Past Medical History?: Yes - Past Social History Smoking Status: Former Smoker - CARDIAC Hx Hypertension: Yes - PULMONARY Hx Chronic Obstructive Pulmonary Disease (COPD): Yes Hx Sleep Apnea: Yes - NEUROLOGICAL Hx Neurological Disorder: No Hx Paralysis: No - HEENT Hx HEENT Problems: No - RENAL Hx Chronic Kidney Disease: Yes Other/Comment: Renal Ca of R kidney, nephrectomy - ENDOCRINE/METABOLIC Hx Endocrine Disorders: No Hx Diabetes Mellitus Type 2: Yes - HEMATOLOGICAL/ONCOLOGICAL Hx Blood Transfusions: No - INTEGUMENTARY Hx Dermatological Problems: No - MUSCULOSKELETAL/RHEUMATOLOGICAL Hx Musculoskeletal Disorders: Yes Hx Back Pain: Yes Hx Falls: Yes Hx Unsteady Gait: Yes - GASTROINTESTINAL Hx Gastrointestinal Disorders: No - GENITOURINARY/GYNECOLOGICAL Hx Genitourinary Disorders: No - PSYCHIATRIC Hx Substance Use: No - SURGICAL HISTORY Hx Tonsillectomy: Yes - ANESTHESIA Hx Anesthesia: Yes Hx Anesthesia Reactions: No Hx Malignant Hyperthermia: No Has any member of the family had a problem w/ anesthesia?: No Meds Allergies/Adverse Reactions: Allergies Allergy/AdvReac Type Severity Reaction Status Date / Time No Known Allergies Allergy Verified 01/11/18 06:58 - Medications Medications: Current Medications Albuterol/Ipratropium (Duoneb 3 Mg/0.5 Mg (3 Ml) Ud) 3 ml INH RQ6 PRN PRN Reason: Shortness of Breath Aspirin (Ecotrin) 81 mg PO DAILY [facility] Enoxaparin Sodium (Lovenox) 40 mg SC DAILY [facility] Famotidine (Pepcid) 20 mg IVP Q12H [facility] Dextrose/Sodium Chloride (Dextrose 5%/0.45% Ns 1000 Ml) 1,000 mls @ 100 mls/hr IV .Q10H [facility] Last Admin: 01/12/18 04:00 Dose: 100 mls/hr Influenza Virus Vaccine (Fluzone Quad [id number]) 60 mcg IM .ONCE ONE Stop: 01/14/18 10:01 Lidocaine HCl (Xylocaine 2%) 1 ea TOP BID [facility] Last Admin: 01/11/18 18:45 Dose: 1 appl Oxycodone HCl (Oxycodone Immediate Release Tab) 20 mg PO Q6 PRN PRN Reason: Pain, severe (8-10) Last Admin: 01/11/18 23:47 Dose: 20 mg Pneumococcal Polyvalent Vaccine (Pneumovax 23 Vaccine) 0.5 ml IM .ONCE ONE Stop: 01/13/18 10:01 Physical Exam - Constitutional Appears: Non-toxic, No Acute Distress - Eye Exam Eye Exam: Normal appearance - ENT Exam ENT Exam: Mucous Membranes Moist - Neck Exam Neck exam: Negative for: Lymphadenopathy - Respiratory Exam Respiratory Exam: Clear to Auscultation Bilateral. absent: Respiratory Distress - Cardiovascular Exam Cardiovascular Exam: RRR, +S1, +S2. absent: Gallop - GI/Abdominal Exam GI & Abdominal Exam: Soft. absent: Distended, Tenderness - Extremities Exam Additional comments: mild b/l lower leg edema; - Neurological Exam Neurological exam: Alert, Oriented x3 Additional comments: no resting tremor - Psychiatric Exam Psychiatric exam: Normal Affect, Normal Mood - Skin Skin Exam: Normal Color, Warm Results - Vital Signs Recent Vital Signs: Last Vital Signs Temp 98.3 F 01/12/18 00:27 Pulse 90 01/12/18 00:27 Resp 20 01/12/18 00:27 BP 131/60 01/12/18 00:27 Pulse Ox 98 01/12/18 00:27 - Labs Result Diagrams: 01/11/18 10:44 01/11/18 10:44 Labs: Laboratory Results - last 24 hr 01/11/18 01/11/18 01/11/18 10:44 10:44 10:44 WBC 8.5 RBC 4.49 Hgb 12.9 D Hct 37.9 MCV 84.3 D MCH 28.6 MCHC 33.9 RDW 14.9 H Plt Count 257 MPV 7.7 Neut % (Auto) 72.1 Lymph % (Auto) 15.9 L [place] % (Auto) 9.3 Eos % (Auto) 1.4 Baso % (Auto) 1.3 Neut # (Auto) 6.1 Lymph # (Auto) 1.4 [place] # (Auto) 0.8 Eos # (Auto) 0.1 Baso # (Auto) 0.1 Sodium 138 Potassium 4.5 Chloride 106 Carbon Dioxide 25 Anion Gap 12 BUN 31 H Creatinine 1.8 H Est GFR ( Amer) 46 Est GFR (Non-Af Amer) 38 POC Glucose (mg/dL) Random Glucose 91 Hemoglobin A1c Calcium 9.2 Phosphorus 4.3 Magnesium 2.6 H Iron TIBC % Saturation Total Bilirubin 1.5 H GGT AST 143 H D ALT 116 H D Alkaline Phosphatase 94 Troponin I < 0.0120 Total Protein 7.4 Albumin 3.8 Globulin 3.5 Albumin/Globulin Ratio 1.1 Triglycerides Cholesterol LDL Cholesterol Direct HDL Cholesterol Urine Color Urine Clarity Urine pH Ur Specific [place] Urine Protein Urine Glucose (UA) Urine Ketones Urine Blood Urine Nitrate Urine Bilirubin Urine Urobilinogen Ur Leukocyte Esterase Urine WBC (Auto) Urine RBC (Auto) Ur Squamous Epith Cells Urine Bacteria Hyaline Casts Granular Casts (Auto) Salicylates < 1.0 Urine Opiates Screen Urine Methadone Screen Acetaminophen < 10.0 L Ur Barbiturates Screen Ur Phencyclidine Scrn Ur Amphetamines Screen U Benzodiazepines Scrn U Oth Cocaine Metabols U Cannabinoids Screen Alcohol, Quantitative < 10 Hepatitis A IgM Ab Hep Bs Antigen Hep B Core IgM Ab Hepatitis C Antibody 01/11/18 01/11/18 01/11/18 11:20 11:20 17:04 WBC RBC Hgb Hct MCV MCH MCHC RDW Plt Count MPV Neut % (Auto) Lymph % (Auto) [place] % (Auto) Eos % (Auto) Baso % (Auto) Neut # (Auto) Lymph # (Auto) [place] # (Auto) Eos # (Auto) Baso # (Auto) Sodium Potassium Chloride Carbon Dioxide Anion Gap BUN Creatinine Est GFR ( Amer) Est GFR (Non-Af Amer) POC Glucose (mg/dL) 97 Random Glucose Hemoglobin A1c Calcium Phosphorus Magnesium Iron TIBC % Saturation Total Bilirubin GGT AST ALT Alkaline Phosphatase Troponin I Total Protein Albumin Globulin Albumin/Globulin Ratio Triglycerides Cholesterol LDL Cholesterol Direct HDL Cholesterol Urine Color Yellow Urine Clarity Hazy Urine pH 5.0 Ur Specific [place] 1.017 Urine Protein 1+ H Urine Glucose (UA) Normal Urine Ketones 1+ H Urine Blood 2+ H Urine Nitrate Negative Urine Bilirubin Negative Urine Urobilinogen Normal Ur Leukocyte Esterase Neg Urine WBC (Auto) 2 Urine RBC (Auto) 2 Ur Squamous Epith Cells < 1 Urine Bacteria Occ H Hyaline Casts 3-5 H Granular Casts (Auto) 1 Salicylates Urine Opiates Screen Positive H Urine Methadone Screen Negative Acetaminophen Ur Barbiturates Screen Negative Ur Phencyclidine Scrn Negative Ur Amphetamines Screen Negative U Benzodiazepines Scrn Negative U Oth Cocaine Metabols Negative U Cannabinoids Screen Negative Alcohol, Quantitative Hepatitis A IgM Ab Hep Bs Antigen Hep B Core IgM Ab Hepatitis C Antibody 01/11/18 01/11/18 01/11/18 17:21 17:21 17:21 WBC RBC Hgb Hct MCV MCH MCHC RDW Plt Count MPV Neut % (Auto) Lymph % (Auto) [place] % (Auto) Eos % (Auto) Baso % (Auto) Neut # (Auto) Lymph # (Auto) [place] # (Auto) Eos # (Auto) Baso # (Auto) Sodium Potassium Chloride Carbon Dioxide Anion Gap BUN Creatinine Est GFR ( Amer) Est GFR (Non-Af Amer) POC Glucose (mg/dL) Random Glucose Hemoglobin A1c Calcium Phosphorus Magnesium Iron 45 L TIBC 214 L % Saturation 21 21 Total Bilirubin GGT 52 AST ALT Alkaline Phosphatase Troponin I Total Protein Albumin Globulin Albumin/Globulin Ratio Triglycerides 83 D Cholesterol 119 LDL Cholesterol Direct 60 HDL Cholesterol 52 Urine Color Urine Clarity Urine pH Ur Specific [place] Urine Protein Urine Glucose (UA) Urine Ketones Urine Blood Urine Nitrate Urine Bilirubin Urine Urobilinogen Ur Leukocyte Esterase Urine WBC (Auto) Urine RBC (Auto) Ur Squamous Epith Cells Urine Bacteria Hyaline Casts Granular Casts (Auto) Salicylates Urine Opiates Screen Urine Methadone Screen Acetaminophen Ur Barbiturates Screen Ur Phencyclidine Scrn Ur Amphetamines Screen U Benzodiazepines Scrn U Oth Cocaine Metabols U Cannabinoids Screen Alcohol, Quantitative Hepatitis A IgM Ab Hep Bs Antigen Hep B Core IgM Ab Hepatitis C Antibody 01/11/18 01/11/18 01/11/18 17:21 17:21 21:14 WBC RBC Hgb Hct MCV MCH MCHC RDW Plt Count MPV Neut % (Auto) Lymph % (Auto) [place] % (Auto) Eos % (Auto) Baso % (Auto) Neut # (Auto) Lymph # (Auto) [place] # (Auto) Eos # (Auto) Baso # (Auto) Sodium Potassium Chloride Carbon Dioxide Anion Gap BUN Creatinine Est GFR ( Amer) Est GFR (Non-Af Amer) POC Glucose (mg/dL) 96 Random Glucose Hemoglobin A1c 5.8 Calcium Phosphorus Magnesium Iron TIBC % Saturation Total Bilirubin GGT AST ALT Alkaline Phosphatase Troponin I Total Protein Albumin Globulin Albumin/Globulin Ratio Triglycerides Cholesterol LDL Cholesterol Direct HDL Cholesterol Urine Color Urine Clarity Urine pH Ur Specific [place] Urine Protein Urine Glucose (UA) Urine Ketones Urine Blood Urine Nitrate Urine Bilirubin Urine Urobilinogen Ur Leukocyte Esterase Urine WBC (Auto) Urine RBC (Auto) Ur Squamous Epith Cells Urine Bacteria Hyaline Casts Granular Casts (Auto) Salicylates Urine Opiates Screen Urine Methadone Screen Acetaminophen Ur Barbiturates Screen Ur Phencyclidine Scrn Ur Amphetamines Screen U Benzodiazepines Scrn U Oth Cocaine Metabols U Cannabinoids Screen Alcohol, Quantitative Hepatitis A IgM Ab Negative Hep Bs Antigen Negative Hep B Core IgM Ab Negative Hepatitis C Antibody Reactive 01/12/18 02:28 WBC RBC Hgb Hct MCV MCH MCHC RDW Plt Count MPV Neut % (Auto) Lymph % (Auto) [place] % (Auto) Eos % (Auto) Baso % (Auto) Neut # (Auto) Lymph # (Auto) [place] # (Auto) Eos # (Auto) Baso # (Auto) Sodium Potassium Chloride Carbon Dioxide Anion Gap BUN Creatinine Est GFR ( Amer) Est GFR (Non-Af Amer) POC Glucose (mg/dL) 102 Random Glucose Hemoglobin A1c Calcium Phosphorus Magnesium Iron TIBC % Saturation Total Bilirubin GGT AST ALT Alkaline Phosphatase Troponin I Total Protein Albumin Globulin Albumin/Globulin Ratio Triglycerides Cholesterol LDL Cholesterol Direct HDL Cholesterol Urine Color Urine Clarity Urine pH Ur Specific [place] Urine Protein Urine Glucose (UA) Urine Ketones Urine Blood Urine Nitrate Urine Bilirubin Urine Urobilinogen Ur Leukocyte Esterase Urine WBC (Auto) Urine RBC (Auto) Ur Squamous Epith Cells Urine Bacteria Hyaline Casts Granular Casts (Auto) Salicylates Urine Opiates Screen Urine Methadone Screen Acetaminophen Ur Barbiturates Screen Ur Phencyclidine Scrn Ur Amphetamines Screen U Benzodiazepines Scrn U Oth Cocaine Metabols U Cannabinoids Screen Alcohol, Quantitative Hepatitis A IgM Ab Hep Bs Antigen Hep B Core IgM Ab Hepatitis C Antibody - Imaging and Cardiology US - abdomen Status: Image reviewed by me Additional comment: L kidney with increased echogenicity Assessment & Plan (1) CKD (chronic kidney disease), stage III Assessment and Plan: CKD IIIB, with renal function reportedly at baseline (Cr 1.8, eGFR 38 ml/min); s/p R nephrectomy but also has some proteinuria which may be 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 NSAIDS, phosphate enema, etc); -agree with echo to look for cardiorenal component of renal failure; Status: Acute (2) Renal cell cancer Assessment and Plan: Reported metastatic disease; needs oncology f/u for possible chemo; Status: Acute (3) Leg swelling Assessment and Plan: Agree with echo to look for CHF; avoid excessive diuresis (especially if patient's respiratory status remains stable); Status: Acute
[2018-01-12] MEDS ORDERED: oxyCODONE 10 mg Immediate Release Tab PO PRN (07:55)
[2018-01-12 08:20] LABS: BASO % 0.7 % (0.0-2.0); EOS # 0.4 K/uL (0.0-0.7); HEMOGLOBIN 12.6 g/dL (12.0-18.0); LYMPH # 1.6 K/uL (1.0-4.3); LYMPH % 22.1 % (20.0-40.0); MEAN CELL VOLUME 83.9 fL (80.0-94.0); MEAN CORPUSCULAR HEMOGLOBIN 28.2 pg (27.0-31.0); MEAN CORPUSCULAR HGB CONC 33.7 g/dL (33.0-37.0); MONO # 0.6 K/uL (0.0-0.8); MONO % 8.2 % (0.0-10.0); NEUT # 4.6 K/uL (1.8-7.0); NRBC % 0.1 % (0.0-2.0); RBC 4.48 Mil/uL (4.40-5.90); RED CELL DISTRIBUTION WIDTH 14.8 % (11.5-14.5); WHITE BLOOD COUNT 7.1 K/uL (4.8-10.8)
[2018-01-12] MEDS: oxyCODONE 10 mg Immediate Release Tab PO PRN ×3 (08:25→21:09)
[2018-01-12 08:51] LABS: ALBUMIN 3.6 g/dL (3.5-5.0); BILIRUBIN,DIRECT 0.6 mg/dL (0.0-0.4); CALCIUM 8.8 mg/dl (8.6-10.4)
[2018-01-12 09:16] LABS: COMPLEMENT C4 20.7 mg/dL (14.0-44.0)
[2018-01-12] MEDS: Enoxaparin 40 mg Syringe SC SCH (09:46)
--- NOTE | 2018-01-12 09:48 | CP.PCM.PN ---
Subjective - Date & Time of Evaluation Date of Evaluation: 01/12/18 Time of Evaluation: 09:46 - Subjective Subjective: Vascular Surgery: Dr. Reyes Pt seen and examined. No acute overnight events. Pt admits to persistent swelling in b/l lower extremities but states he's able to ambulate. Denies other complaints at this time. Denies nausea/vomiting, fevers/chills. Objective - Vital Signs/Intake and Output Vital Signs (last 24 hours): Temp Pulse Resp BP Pulse Ox 97.8 F 89 22 122/71 96 01/12/18 08:00 01/12/18 08:00 01/12/18 08:00 01/12/18 08:00 01/12/18 08:00 Intake and Output: 01/12/18 01/12/18 06:59 18:59 Intake Total 1200 Balance 1200 - Medications Medications: Current Medications Albuterol/Ipratropium (Duoneb 3 Mg/0.5 Mg (3 Ml) Ud) 3 ml INH RQ6 PRN PRN Reason: Shortness of Breath Aspirin (Ecotrin) 81 mg PO DAILY [facility] Enoxaparin Sodium (Lovenox) 40 mg SC DAILY [facility] Famotidine (Pepcid) 20 mg IVP Q12H [facility] Dextrose/Sodium Chloride (Dextrose 5%/0.45% Ns 1000 Ml) 1,000 mls @ 100 mls/hr IV .Q10H [facility] Last Admin: 01/12/18 04:00 Dose: 100 mls/hr Influenza Virus Vaccine (Fluzone Quad [id number]) 60 mcg IM .ONCE ONE Stop: 01/14/18 10:01 Lidocaine HCl (Xylocaine 2%) 1 ea TOP BID [facility] Last Admin: 01/11/18 18:45 Dose: 1 appl Oxycodone HCl (Oxycodone Immediate Release Tab) 20 mg PO Q6H PRN PRN Reason: Pain, severe (8-10) Last Admin: 01/12/18 08:25 Dose: 20 mg Pneumococcal Polyvalent Vaccine (Pneumovax 23 Vaccine) 0.5 ml IM .ONCE ONE Stop: 01/13/18 10:01 - Labs Labs: 01/12/18 08:05 01/12/18 08:05 - Constitutional Appears: Well, No Acute Distress - Head Exam Head Exam: ATRAUMATIC, NORMOCEPHALIC - Eye Exam Eye Exam: Normal appearance - ENT Exam ENT Exam: Mucous Membranes Moist - Respiratory Exam Respiratory Exam: NORMAL BREATHING PATTERN - Cardiovascular Exam Cardiovascular Exam: RRR - GI/Abdominal Exam GI & Abdominal Exam: Soft - Extremities Exam Extremities Exam: Normal Capillary Refill, Pedal Edema Additional comments: b/l LE warm, no skin breakdown noted - Neurological Exam Neurological Exam: Alert, Awake - Skin Skin Exam: Dry, Warm Assessment and Plan - Assessment and Plan (Free Text) Assessment: 62M with edema/cellulitis of b/l LE Plan: - encourage elevation of b/l LE when sedentary - compression stockings as well as thu bandages to b/l LE - no plan for vascular intervention at this time - d/w Dr. Eric Macdonald
[2018-01-12 10:01] LABS: FOLATE 7.5 ng/mL
[2018-01-12] MEDS: Lidocaine 2% Jelly (30 ml) TOP SCH ×2 (11:00→21:10)
--- NOTE | 2018-01-12 11:46 | CP.PCM.PN ---
<Michael Preston - Last Filed: 01/13/18 07:03> Subjective - Date & Time of Evaluation Date of Evaluation: 01/12/18 Time of Evaluation: 11:44 - Subjective Subjective: Nephrology Progress Note for Dr. Leyva Patient seen and examined at bedside. No acute overnight events. Patient states that pain still persists in lower back and is intolerable during imaging. Patient denies CP, SOB, n/v/d, abdominal pain, fever, chills, DACOSTA, or dizziness. Objective - Vital Signs/Intake and Output Vital Signs (last 24 hours): Temp Pulse Resp BP Pulse Ox 97.8 F 89 22 122/71 96 01/12/18 08:00 01/12/18 08:00 01/12/18 08:00 01/12/18 08:00 01/12/18 08:00 Intake and Output: 01/12/18 01/12/18 06:59 18:59 Intake Total 1200 Balance 1200 - Medications Medications: Current Medications Albuterol/Ipratropium (Duoneb 3 Mg/0.5 Mg (3 Ml) Ud) 3 ml INH RQ6 PRN PRN Reason: Shortness of Breath Aspirin (Ecotrin) 81 mg PO DAILY [facility] Last Admin: 01/12/18 09:46 Dose: 81 mg Enoxaparin Sodium (Lovenox) 40 mg SC DAILY [facility] Last Admin: 01/12/18 09:46 Dose: 40 mg Famotidine (Pepcid) 20 mg IVP Q12H [facility] Last Admin: 01/12/18 09:46 Dose: 20 mg Dextrose/Sodium Chloride (Dextrose 5%/0.45% Ns 1000 Ml) 1,000 mls @ 100 mls/hr IV .Q10H [facility] Last Admin: 01/12/18 04:00 Dose: 100 mls/hr Influenza Virus Vaccine (Fluzone Quad [id number]) 60 mcg IM .ONCE ONE Stop: 01/14/18 10:01 Lidocaine HCl (Xylocaine 2%) 1 ea TOP BID [facility] Last Admin: 01/12/18 11:00 Dose: 1 appl Oxycodone HCl (Oxycodone Immediate Release Tab) 20 mg PO Q6H PRN PRN Reason: Pain, severe (8-10) Last Admin: 01/12/18 08:25 Dose: 20 mg Pneumococcal Polyvalent Vaccine (Pneumovax 23 Vaccine) 0.5 ml IM .ONCE ONE Stop: 01/13/18 10:01 - Labs Labs: 01/12/18 08:05 01/12/18 08:05 - Constitutional Appears: No Acute Distress - Head Exam Head Exam: NORMAL INSPECTION - Eye Exam Eye Exam: Normal appearance Pupil Exam: NORMAL ACCOMODATION - ENT Exam ENT Exam: Mucous Membranes Moist, Normal Exam - Neck Exam Neck Exam: Normal Inspection - Respiratory Exam Respiratory Exam: Clear to Ausculation Bilateral. absent: Rales, Rhonchi, Wheezes - Cardiovascular Exam Cardiovascular Exam: RRR. absent: Gallop, Rubs, Murmur - GI/Abdominal Exam GI & Abdominal Exam: Soft, Normal Bowel Sounds. absent: Tenderness - Extremities Exam Extremities Exam: Pedal Edema (2+) - Back Exam Back Exam: NORMAL INSPECTION - Neurological Exam Neurological Exam: Alert, Awake, Oriented x3 - Skin Skin Exam: Normal Color Assessment and Plan - Assessment and Plan (Free Text) Assessment: 62 yo M with PMH of renal cell CA with mets to lung s/p nephrectomy (2008), DM, HTN, HLD, and COPD admitted for leg and back pain. Nephrology consulted for acute renal insufficiency. Plan: 1. Chronic Kidney Disease Stage IIIB - Creatinine currently at baseline ~1.7 - Proteinuria noted on UA - HIV negative - Hep C reactive - C3 low, C4 WNL - Further workup pending: random urine protein, microalbumin, and creatinine, GLADIS, SPEP/IF, serum free light chains - Echo pending, consider cardiorenal - Avoid nephrotoxic agents 2. Renal cell carcinoma - Oncology following 3. LE edema - LE duplex negative - Echo pending - Would avoid excessive diuresis Patient seen and discussed in detail with Dr. Leyva. Yandel Preston, DO PGY2 <Frandy Leyva - Last Filed: 01/13/18 07:47> Objective - Vital Signs/Intake and Output Vital Signs (last 24 hours): Temp Pulse Resp BP Pulse Ox 98.2 F 87 20 127/64 98 01/13/18 00:07 01/13/18 00:07 01/13/18 00:07 01/13/18 00:07 01/13/18 00:07 Intake and Output: 01/13/18 01/13/18 06:59 18:59 Intake Total 800 Output Total 1000 Balance -200 - Medications Medications: Current Medications Albuterol/Ipratropium (Duoneb 3 Mg/0.5 Mg (3 Ml) Ud) 3 ml INH RQ6 PRN PRN Reason: Shortness of Breath Aspirin (Ecotrin) 81 mg PO DAILY [facility] Last Admin: 01/12/18 09:46 Dose: 81 mg Enoxaparin Sodium (Lovenox) 40 mg SC DAILY [facility] Last Admin: 01/12/18 09:46 Dose: 40 mg Famotidine (Pepcid) 20 mg IVP Q12H [facility] Last Admin: 01/12/18 21:10 Dose: 20 mg Dextrose/Sodium Chloride (Dextrose 5%/0.45% Ns 1000 Ml) 1,000 mls @ 100 mls/hr IV .Q10H [facility] Last Admin: 01/12/18 23:50 Dose: Not Given Influenza Virus Vaccine (Fluzone Quad [id number]) 60 mcg IM .ONCE ONE Stop: 01/14/18 10:01 Lidocaine HCl (Xylocaine 2%) 1 ea TOP BID [facility] Last Admin: 01/12/18 21:10 Dose: 1 appl Oxycodone HCl (Oxycodone Immediate Release Tab) 20 mg PO Q6H PRN PRN Reason: Pain, severe (8-10) Last Admin: 01/13/18 03:24 Dose: 20 mg Pneumococcal Polyvalent Vaccine (Pneumovax 23 Vaccine) 0.5 ml IM .ONCE ONE Stop: 01/13/18 10:01 - Labs Labs: 01/12/18 08:05 01/12/18 08:05 Assessment and Plan (1) CKD (chronic kidney disease), stage III Status: Acute (2) Renal cell cancer Status: Acute (3) Leg swelling Status: Acute Attending/Attestation - Attestation I have personally seen and examined this patient.: Yes I have fully participated in the care of the patient.: Yes I have reviewed all pertinent clinical information, including history, physical exam and plan: Yes Notes (Text): Patient seen and examined; I agree with the resident's note as above with the following additions/edits: 62 yo M w/ renal cell CA s/p L nephrectomy, recently found to have lung mets, CKD IIIB, admitted with leg pain and falls; Renal function appears to be at baseline; has proteinuric CKD for which serologic workup has been sent (to look for causes other than a secondary FSGS induced by having decreased renal mass); mildly low C3 of unclear signficance, GLADIS pending; Discussed at length with consulting oncologist; since original nephrectomy was in 2008, there is possiblity that patient already had micro-metastatic disease that was very indolent and only manifesting itself recently; since patient has had extensive outpatient imaging, no need for imaging studies currently; Otherwise, echo was ordered due to leg swelling but patient self-terminated the study due to being in pain; discussed with him that we should have a complete study done before deciding to put him on diuretics (so that we don't unnecessarily drop his BP; is normotensive off any BP meds and needs to restart RAHEL inhibitor for proteinuria); -Restart lisinopril at 10 mg daily; -f/u rest of renal worup; -Avoid nephrotoxic agents; -Can d/c IVF as patient reportedly having good PO dietary intake;
--- NOTE | 2018-01-12 12:16 | US ---
HISTORY: transaminitis COMPARISON: CT abdomen and pelvis without contrast performed 10/21/14 TECHNIQUE: Sonographic evaluation of the abdomen. FINDINGS: Images severely degraded by habitus. LIVER: Measures 22.4 cm in sagittal dimension. Echogenic liver may be seen in setting of hepatic parenchymal disease or fatty infiltration. No focal hepatic mass identified. The main portal vein appears patent with normal directional flow. No intrahepatic bile duct dilatation. GALLBLADDER: No gallstones. No gallbladder wall thickening. Negative sonographic Churchill's sign as assessed by the process chemist. COMMON BILE DUCT: Measures 6 mm. PANCREAS: Not well visualized. RIGHT KIDNEY: Not visualized. LEFT KIDNEY: Measures 17.4 x 6.5 x 8.1cm. 3.3 x 4.0 x 4.0 cm upper pole cyst. 2.5 x 2.4 x 2.9 cm midpole cyst. Echogenic foci likely calculi. No hydronephrosis. SPLEEN: Measures approximately 17.3 cm. AORTA: Not well-visualized. IVC: Not well-visualized. OTHER FINDINGS: None. IMPRESSION: Markedly limited study. Hepatomegaly. Echogenic liver may be seen in setting of hepatic parenchymal disease or fatty infiltration. Splenomegaly. Left renal cysts. Echogenic foci likely nonobstructing calculi. Right nephrectomy. Preliminary impression was provided by [facility].
--- NOTE | 2018-01-12 12:41 | PN ---
DATE: 01/12/2018 LOCATION: 359, bed A. SUBJECTIVE: This is a 62-year-old male seen initially for GI consultation on 01/11/2018 as requested by the admitting MD, reexamined again today with the complaint of lower back pain, generalized weakness and malaise with less oral intake and nausea, mild dyspepsia, but no reported active bleeding with lower extremities edematous changes, with less oral intake. No chills or fever reported and no chest pain or palpitation The entire chart is reviewed including, but not limited to the most recent lab and radiology study results, current and the previous medication list, current and the previous medical events and today's lab results showed normal CBC with increased BUN of 29, creatinine 1.7, glucose 112, magnesium 2.5 with low iron studies. Total bilirubin is normal, but AST 137, ALT of 112. The patient has a known history of excessive alcohol intake. Rest of the blood results still pending. However, hepatitis profile was reported to be negative except hepatitis C antibody positive. PHYSICAL EXAMINATION: GENERAL: This is a 62-year-old male, obese, awake, alert. VITAL SIGNS: Afebrile with pulse of 86, respiratory rate 20-22, blood pressure of 130/76. HEENT: Showed pale dry oral mucoid membrane. Nonicteric sclerae. LUNGS: Few scattered crepitation. Decreased air entry at bases. HEART: Positive S1 and S2. ABDOMEN: Soft with mild generalized tenderness. No mass or organomegaly. No rebound tenderness or guarding, obese. EXTREMITIES: With lower extremity edematous changes. No clubbing or cyanosis. NEUROLOGIC: No reported neurological deficits, sensory or motor. IMPRESSION: 1. Hepatitis C viral infection, by record and recent blood testing, the patient is unaware of it with mildly elevated liver function tests. 2. Known history of stage V renal cell carcinoma with metastatic lung lesions. 3. Known history of hypertension, congestive heart failure, diabetes mellitus, depression with obesity. 4. Chronic lower back pain syndrome. 5. Status post tonsillectomy, nephrectomy as well as meniscus repair by history. SUGGESTIONS: 1. Agree with your plan. 2. Cancer markers including alpha fetoprotein as well as CEA. 3. Guaiac all the stools daily x3 ____ . 4. Hepatitis C viral infection as outpatient that could be done also through an [employer] sales and leasing consultant. 5. Further recommendation to follow as Dr. Schmitt. Jodi Schmitt MD
--- NOTE | 2018-01-12 12:47 | CARD ---
APPROVED REPORT Date of service: 01/11/2018 EKG Measurement Heart [id number] <Conclusion> Normal sinus rhythm Nonspecific intraventricular conduction delay Borderline ECG
--- NOTE | 2018-01-12 13:37 | CP.PCM.PN ---
Subjective - Date & Time of Evaluation Date of Evaluation: 01/12/18 Time of Evaluation: 09:00 - Subjective Subjective: PGY2 Progress note for Dr. Fofana Patient was seen and examined at bedside in no acute distress. Patient was oob to chair. Patient complains of bilateral lower back pain and bilateral leg pain. He states he was ubale to go for the echo today because it hurts him to be in that position for too long. The patient denies chest pain, palpitations, nausea, vomiting, fevers, headaches, dizziness, dysuria, and constipation/diarrhea. Objective - Vital Signs/Intake and Output Vital Signs (last 24 hours): Temp Pulse Resp BP Pulse Ox 97.8 F 89 22 122/71 96 01/12/18 08:00 01/12/18 08:00 01/12/18 08:00 01/12/18 08:00 01/12/18 08:00 Intake and Output: 01/12/18 01/12/18 06:59 18:59 Intake Total 1200 Balance 1200 - Medications Medications: Current Medications Albuterol/Ipratropium (Duoneb 3 Mg/0.5 Mg (3 Ml) Ud) 3 ml INH RQ6 PRN PRN Reason: Shortness of Breath Aspirin (Ecotrin) 81 mg PO DAILY [facility] Last Admin: 01/12/18 09:46 Dose: 81 mg Enoxaparin Sodium (Lovenox) 40 mg SC DAILY [facility] Last Admin: 01/12/18 09:46 Dose: 40 mg Famotidine (Pepcid) 20 mg IVP Q12H [facility] Last Admin: 01/12/18 09:46 Dose: 20 mg Dextrose/Sodium Chloride (Dextrose 5%/0.45% Ns 1000 Ml) 1,000 mls @ 100 mls/hr IV .Q10H [facility] Last Admin: 01/12/18 12:56 Dose: Not Given Influenza Virus Vaccine (Fluzone Quad [id number]) 60 mcg IM .ONCE ONE Stop: 01/14/18 10:01 Lidocaine HCl (Xylocaine 2%) 1 ea TOP BID [facility] Last Admin: 01/12/18 11:00 Dose: 1 appl Oxycodone HCl (Oxycodone Immediate Release Tab) 20 mg PO Q6H PRN PRN Reason: Pain, severe (8-10) Last Admin: 11/15/18 08:25 Dose: 20 mg Pneumococcal Polyvalent Vaccine (Pneumovax 23 Vaccine) 0.5 ml IM .ONCE ONE Stop: 01/13/18 10:01 - Labs Labs: 01/12/18 08:05 01/12/18 08:05 - Constitutional Appears: No Acute Distress - Head Exam Head Exam: ATRAUMATIC, NORMAL INSPECTION - Eye Exam Eye Exam: EOMI, Normal appearance - ENT Exam ENT Exam: Mucous Membranes Moist - Respiratory Exam Respiratory Exam: Decreased Breath Sounds, NORMAL BREATHING PATTERN. absent: Rales, Rhonchi, Wheezes - Cardiovascular Exam Cardiovascular Exam: REGULAR RHYTHM, +S1, +S2 - GI/Abdominal Exam GI & Abdominal Exam: Soft, Normal Bowel Sounds. absent: Distended, Firm, Gu arding, Tenderness Additional comments: obese - Extremities Exam Extremities Exam: Pedal Edema (b/l, right > left), Tenderness (b/l, right > left) - Back Exam Back Exam: absent: paraspinal tenderness, rash noted, tenderness (no tenderness with palpation) - Neurological Exam Neurological Exam: Alert, Awake - Psychiatric Exam Psychiatric exam: Normal Affect, Normal Mood - Skin Skin Exam: Dry, Intact, Warm Assessment and Plan - Assessment and Plan (Free Text) Plan: Back pain - Possibly 2/2 mets? - Lumbar spine xray: negative - PT/OT Hx of renal cell cancer - history of renal cell carcinoma with nephrectomy in 2008; has not had further treatment - mets to the lungs - heme/onc consult. Dr. Willoughby. recs appreciated. - nephrology consult. Dr. Leyva. recs appreciated. * Further workup pending: random urine protein, microalbumin, and creatinine, GLADIS, SPEP/IF, serum free light chains * Echo pending, consider cardiorenal * Avoid nephrotoxic agents CKD Stage IIIB - Proteinuria on UA - Elevated creatinine - Nephrology consult. Dr. Leyva. recs appreciated. * Further workup pending: random urine protein, microalbumin, and creatinine, GLADIS, SPEP/IF, serum free light chains * Echo pending, consider cardiorenal * Avoid nephrotoxic agents Stasis dermatitis/PVD/LE edema - LE venous dopplers- negative - Echo: pending - Vascular surgery consult. Dr. Reyes. recs appreciated. Hx of DM - A1c 5.8 - Lipid panel: TG 83, Chol 119, LDL 60, HDL 52 - Hold metformin - Accuchecks - Hypoglycemia protocol Dyslipidemia - A1c 5.8 - Lipid panel: TG 83, Chol 119, LDL 60, HDL 52 Transaminitis - Hep C Ab + - Abdominal ultrasound: limited study, hepatomegaly, echogenic liver may be seen in setting of hepatic parenchymal disease or fatty infiltration; splenomegaly; left renal cysts; nonobstructing calculi, right nephrectomy - GI consult. recs appreciated. Dr. Liang - Follow up tumor markers Hx of COPD - Duonebs - Pulmonary Dr. Fofana also on case. hx of sleep apnea - needs sleep study - Bipap HS morbid obesity - Diet and lifestyle modifications Prophylaxis - DVT: Lovenox 40units SC daily - GI: Protonix daily - PT/OT - Palliative care for goals of care All medical management per Dr. Fofana.
--- NOTE | 2018-01-12 13:42 | CARD ---
APPROVED REPORT Date of service: 01/12/2018 EXAM: LIMITED Two-dimensional and M-mode echocardiogram. Other Information Quality : LimitedRhythm : INDICATION Patient refused the test 2D DIMENSIONS IVSd1.2 (0.7-1.1cm)Aortic Root (2D)3.4 (2.0-3.7cm) LVDd4.7 (3.9-5.9cm)PWd1.3 (0.7-1.1cm) LVDs3.3 (2.5-4.0cm)FS (%) 30.1 % LVEF (%)57.4 (>50%) Mitral Valve E/A ratio0.0 TDI E/Lateral E'0.0E/Medial E'0.0 Tricuspid Valve TR Peak [id number] Peak [id number] <Conclusion> Incomplete test as patient declined the completion of test Grossly normal LV EF repeat the study
--- NOTE | 2018-01-12 15:59 | CP.PCM.PN ---
Subjective - Date & Time of Evaluation Date of Evaluation: 01/12/18 Time of Evaluation: 14:00 - Subjective Subjective: Has pain in feet Objective - Vital Signs/Intake and Output Vital Signs (last 24 hours): Temp Pulse Resp BP Pulse Ox 97.8 F 89 22 122/71 96 01/12/18 08:00 01/12/18 08:00 01/12/18 08:00 01/12/18 08:00 01/12/18 08:00 Intake and Output: 01/12/18 01/12/18 06:59 18:59 Intake Total 1200 1300 Balance 1200 1300 - Medications Medications: Current Medications Albuterol/Ipratropium (Duoneb 3 Mg/0.5 Mg (3 Ml) Ud) 3 ml INH RQ6 PRN PRN Reason: Shortness of Breath Aspirin (Ecotrin) 81 mg PO DAILY [facility] Last Admin: 01/12/18 09:46 Dose: 81 mg Enoxaparin Sodium (Lovenox) 40 mg SC DAILY [facility] Last Admin: 01/12/18 09:46 Dose: 40 mg Famotidine (Pepcid) 20 mg IVP Q12H [facility] Last Admin: 01/12/18 09:46 Dose: 20 mg Dextrose/Sodium Chloride (Dextrose 5%/0.45% Ns 1000 Ml) 1,000 mls @ 100 mls/hr IV .Q10H [facility] Last Admin: 01/12/18 12:56 Dose: Not Given Influenza Virus Vaccine (Fluzone Quad [id number]) 60 mcg IM .ONCE ONE Stop: 01/14/18 10:01 Lidocaine HCl (Xylocaine 2%) 1 ea TOP BID [facility] Last Admin: 01/12/18 11:00 Dose: 1 appl Oxycodone HCl (Oxycodone Immediate Release Tab) 20 mg PO Q6H PRN PRN Reason: Pain, severe (8-10) Last Admin: 01/12/18 14:30 Dose: 20 mg Pneumococcal Polyvalent Vaccine (Pneumovax 23 Vaccine) 0.5 ml IM .ONCE ONE Stop: 01/13/18 10:01 - Labs Labs: 01/12/18 08:05 01/12/18 08:05 - Head Exam Head Exam: ATRAUMATIC - Eye Exam Eye Exam: Normal appearance - ENT Exam ENT Exam: Mucous Membranes Dry - Respiratory Exam Respiratory Exam: NORMAL BREATHING PATTERN - Cardiovascular Exam Cardiovascular Exam: +S1, +S2 - GI/Abdominal Exam GI & Abdominal Exam: Normal Bowel Sounds Assessment and Plan (1) Renal cancer Assessment & Plan: with lung metastasis would benefit from outpatient immunotherapy to get an opinion at [facility] [place] and may wish to be treated locally with me outpatient f/u Status: Acute (2) Anemia Assessment & Plan: anemia of chronic disease Status: Acute
[2018-01-12 16:18] VITALS: RESP 20
[2018-01-13] MEDS ORDERED: oxyCODONE 10 mg Immediate Release Tab PO ONE (00:20)
[2018-01-13] MEDS: oxyCODONE 10 mg Immediate Release Tab PO PRN ×4 (03:24→22:00)
--- NOTE | 2018-01-13 07:49 | CP.PCM.PN ---
Subjective - Date & Time of Evaluation Date of Evaluation: 01/13/18 Time of Evaluation: 07:49 - Subjective Subjective: PGY2 Progress note for Dr. Fofana Patient was seen and examined at bedside in no acute distress. Patient was oob to chair. Patient complains of pain in back, legs, and fingertips. Patient also complains of constipation. The patient denies chest pain, palpitations, nausea, vomiting, fevers, headaches, dizziness, dysuria, and diarrhea. Objective - Vital Signs/Intake and Output Vital Signs (last 24 hours): Temp Pulse Resp BP Pulse Ox 98.2 F 87 20 127/64 98 01/13/18 00:07 01/13/18 00:07 01/13/18 00:07 01/13/18 00:07 01/13/18 00:07 Intake and Output: 01/13/18 01/13/18 06:59 18:59 Intake Total 800 Output Total 1000 Balance -200 - Medications Medications: Current Medications Albuterol/Ipratropium (Duoneb 3 Mg/0.5 Mg (3 Ml) Ud) 3 ml INH RQ6 PRN PRN Reason: Shortness of Breath Aspirin (Ecotrin) 81 mg PO DAILY [facility] Last Admin: 01/12/18 09:46 Dose: 81 mg Enoxaparin Sodium (Lovenox) 40 mg SC DAILY [facility] Last Admin: 01/12/18 09:46 Dose: 40 mg Famotidine (Pepcid) 20 mg IVP Q12H [facility] Last Admin: 01/12/18 21:10 Dose: 20 mg Dextrose/Sodium Chloride (Dextrose 5%/0.45% Ns 1000 Ml) 1,000 mls @ 100 mls/hr IV .Q10H [facility] Last Admin: 01/12/18 23:50 Dose: Not Given Influenza Virus Vaccine (Fluzone Quad [id number]) 60 mcg IM .ONCE ONE Stop: 01/14/18 10:01 Lidocaine HCl (Xylocaine 2%) 1 ea TOP BID [facility] Last Admin: 01/12/18 21:10 Dose: 1 appl Lisinopril (Zestril) 10 mg PO DAILY [facility] Oxycodone HCl (Oxycodone Immediate Release Tab) 20 mg PO Q6H PRN PRN Reason: Pain, severe (8-10) Last Admin: 11/16/18 03:24 Dose: 20 mg Pneumococcal Polyvalent Vaccine (Pneumovax 23 Vaccine) 0.5 ml IM .ONCE ONE Stop: 01/13/18 10:01 - Labs Labs: 01/12/18 08:05 01/12/18 08:05 - Additional Findings Additional findings: Appears: No Acute Distress, unkempt - Head Exam Head Exam: ATRAUMATIC, NORMAL INSPECTION - Eye Exam Eye Exam: EOMI, Normal appearance - ENT Exam ENT Exam: Mucous Membranes Moist - Respiratory Exam Respiratory Exam: Decreased Breath Sounds, NORMAL BREATHING PATTERN. absent: Rales, Rhonchi, Wheezes - Cardiovascular Exam Cardiovascular Exam: REGULAR RHYTHM, +S1, +S2 - GI/Abdominal Exam GI & Abdominal Exam: Soft, Normal Bowel Sounds. absent: Distended, Firm, Guarding, Tenderness Additional comments: obese - Extremities Exam Extremities Exam: Pedal Edema (b/l, right > left), Tenderness (b/l, right > left) - Back Exam Back Exam: absent: paraspinal tenderness, rash noted, tenderness (no tenderness with palpation) - Neurological Exam Neurological Exam: Alert, Awake - Psychiatric Exam Psychiatric exam: Normal Affect, Normal Mood - Skin Skin Exam: Dry, Intact, Warm Assessment and Plan - Assessment and Plan (Free Text) Plan: Back pain - Possibly 2/2 mets? - Lumbar spine xray: negative - PT/OT Hx of renal cell cancer - history of renal cell carcinoma with nephrectomy in 2008; has not had further treatment - mets to the lungs - heme/onc consult. Dr. Willoughby. recs appreciated. * Per Dr. Willoughby, patient would benefit from outpatient immunotherapy - nephrology consult. Dr. Leyva. recs appreciated. * Further workup pending: random urine protein, microalbumin, and creatinine, GLADIS, SPEP/IF, serum free light chains * Echo: incomplete test as patient did not want to continue; grossly normal EF * Avoid nephrotoxic agents CKD Stage IIIB - Proteinuria on UA - Elevated creatinine - Nephrology consult. Dr. Leyva. recs appreciated. * Further workup pending: random urine protein, microalbumin, and creatinine, GLADIS, SPEP/IF, serum free light chains * Echo: incomplete test as patient did not want to continue; grossly normal EF Stasis dermatitis/PVD/LE edema - LE venous dopplers- negative - Echo: incomplete test as patient did not want to continue; grossly normal EF - Vascular surgery consult. Dr. Reyes. recs appreciated. - Lasix 20mg PO given once on 01/13/18 Hx of DM - A1c 5.8 - Lipid panel: TG 83, Chol 119, LDL 60, HDL 52 - Hold metformin - Accuchecks - Hypoglycemia protocol Dyslipidemia - A1c 5.8 - Lipid panel: TG 83, Chol 119, LDL 60, HDL 52 Transaminitis - Hep C Ab + - Abdominal ultrasound: limited study, hepatomegaly, echogenic liver may be seen in setting of hepatic parenchymal disease or fatty infiltration; splenomegaly; left renal cysts; nonobstructing calculi, right nephrectomy - GI consult. recs appreciated. Dr. Liang - Tumor markers: cea, ca19-9, AFP within normal range Hx of COPD - Duonebs - Pulmonary Dr. Fofana also on case. hx of sleep apnea - needs sleep study - Bipap HS morbid obesity - Diet and lifestyle modifications Prophylaxis - DVT: Lovenox 40units SC daily - GI: Protonix daily - PT/OT - Palliative care for goals of care All medical management per Dr. Fofana.
[2018-01-13] MEDS: Dextrose 5%/0.45% NS 1,000 ML IV SCH ×2 (08:15→19:13)
--- NOTE | 2018-01-13 09:43 | HP ---
HISTORY OF PRESENT ILLNESS: The patient chief complaint swelling of the legs, weakness, fatigue and tiredness. The patient severe cell cancer, obstructive sleep apnea. PHYSICAL EXAMINATION GENERAL: The patient is awake, alert and oriented. VITAL SIGNS: Temperature 98, pulse 90. HEENT: Within normal limits. NECK: Supple. CHEST: Symmetrical. HEART: Regular. ABDOMEN: Soft. EXTREMITIES: No edema. The patient needs bedrest, supportive care. Diuresis. Obtain sleep study . Dc Fofana MD
--- NOTE | 2018-01-13 09:49 | CP.PCM.PN ---
<Michael Preston - Last Filed: 01/13/18 12:44> Subjective - Date & Time of Evaluation Date of Evaluation: 01/13/18 Time of Evaluation: 09:46 - Subjective Subjective: Nephrology Progress Note for Dr. Leyva Patient seen and examined at bedside. No acute overnight events. Patient states that he is only SOB with exertion. Patient denies CP, n/v/d, abdominal pain, fever, chills, DACOSTA. Objective - Vital Signs/Intake and Output Vital Signs (last 24 hours): Temp Pulse Resp BP Pulse Ox 98.4 F 82 20 134/71 98 01/13/18 08:26 01/13/18 08:26 01/13/18 08:26 01/13/18 08:26 01/13/18 08:26 Intake and Output: 01/13/18 01/13/18 06:59 18:59 Intake Total 800 Output Total 1000 Balance -200 - Medications Medications: Current Medications Albuterol/Ipratropium (Duoneb 3 Mg/0.5 Mg (3 Ml) Ud) 3 ml INH RQ6 PRN PRN Reason: Shortness of Breath Aspirin (Ecotrin) 81 mg PO DAILY [facility] Last Admin: 01/12/18 09:46 Dose: 81 mg Enoxaparin Sodium (Lovenox) 40 mg SC DAILY [facility] Last Admin: 01/12/18 09:46 Dose: 40 mg Famotidine (Pepcid) 20 mg IVP Q12H [facility] Last Admin: 01/12/18 21:10 Dose: 20 mg Dextrose/Sodium Chloride (Dextrose 5%/0.45% Ns 1000 Ml) 1,000 mls @ 100 mls/hr IV .Q10H [facility] Last Admin: 01/13/18 08:15 Dose: Not Given Influenza Virus Vaccine (Fluzone Quad [id number]) 60 mcg IM .ONCE ONE Stop: 01/14/18 10:01 Lidocaine HCl (Xylocaine 2%) 1 ea TOP BID [facility] Last Admin: 01/12/18 21:10 Dose: 1 appl Lisinopril (Zestril) 10 mg PO DAILY [facility] Oxycodone HCl (Oxycodone Immediate Release Tab) 20 mg PO Q6H PRN PRN Reason: Pain, severe (8-10) Last Admin: 01/13/18 03:24 Dose: 20 mg Pneumococcal Polyvalent Vaccine (Pneumovax 23 Vaccine) 0.5 ml IM .ONCE ONE Stop: 01/13/18 10:01 - Labs Labs: 01/12/18 08:05 01/12/18 08:05 - Constitutional Appears: No Acute Distress - Head Exam Head Exam: NORMAL INSPECTION - Eye Exam Eye Exam: Normal appearance Pupil Exam: NORMAL ACCOMODATION - ENT Exam ENT Exam: Normal Exam - Neck Exam Neck Exam: Normal Inspection - Respiratory Exam Respiratory Exam: Clear to Ausculation Bilateral. absent: Rales, Rhonchi, Wheezes - Cardiovascular Exam Cardiovascular Exam: RRR, +S1, +S2. absent: Gallop, Rubs, Murmur - GI/Abdominal Exam GI & Abdominal Exam: Soft. absent: Distended, Guarding, Tenderness, Rebound - Extremities Exam Extremities Exam: Pedal Edema (2+) - Neurological Exam Neurological Exam: Alert, Awake, Oriented x3 - Psychiatric Exam Psychiatric exam: Normal Affect - Skin Skin Exam: Normal Color Assessment and Plan - Assessment and Plan (Free Text) Assessment: 62 yo M with PMH of renal cell CA with mets to lung s/p nephrectomy (2008), DM, HTN, HLD, and COPD admitted for leg and back pain. Nephrology consulted for acute renal insufficiency. Plan: 1. Chronic Kidney Disease Stage IIIB - Creatinine currently at baseline - Proteinuria noted on UA; will repeat UA - Hep C reactive - Will evaluate hep c renal diseases further - Hep C RNA viral load, RF, and cryoglobulin ordered - C3 mildly low, C4 WNL - Random urine protein, microalbumin, and creatinine moderately elevated - HIV negative - Further workup pending: GLADIS, SPEP/IF, serum free light chains, uric acid - Cont Lisinopril 10 mg daily - Avoid nephrotoxic agents 2. Renal cell carcinoma - Oncology following - CEA, AFP, CA19-9 WNL 3. LE edema - LE venous duplex negative - Echo shows normal EF; but incomplete study as patient could not tolerate it - Would avoid excessive diuresis Patient seen and discussed in detail with Dr. Leyva. Yandel Preston, DO PGY2 <Frandy Leyva - Last Filed: 01/14/18 08:18> Objective - Vital Signs/Intake and Output Vital Signs (last 24 hours): Temp Pulse Resp BP Pulse Ox 98.4 F 75 20 144/80 98 01/14/18 00:00 01/14/18 00:00 01/14/18 00:00 01/14/18 00:00 01/14/18 00:00 Intake and Output: 01/14/18 01/14/18 06:59 18:59 Intake Total 1050 Output Total 800 Balance 250 - Medications Medications: Current Medications Albuterol/Ipratropium (Duoneb 3 Mg/0.5 Mg (3 Ml) Ud) 3 ml INH RQ6 PRN PRN Reason: Shortness of Breath Aspirin (Ecotrin) 81 mg PO DAILY [facility] Last Admin: 01/13/18 09:53 Dose: 81 mg Enoxaparin Sodium (Lovenox) 40 mg SC DAILY [facility] Last Admin: 01/13/18 09:52 Dose: 40 mg Famotidine (Pepcid) 20 mg IVP Q12H [facility] Last Admin: 01/13/18 21:37 Dose: 20 mg Dextrose/Sodium Chloride (Dextrose 5%/0.45% Ns 1000 Ml) 1,000 mls @ 100 mls/hr IV .Q10H [facility] Last Admin: 01/14/18 05:00 Dose: Not Given Influenza Virus Vaccine (Fluzone Quad [id number]) 60 mcg IM .ONCE ONE Stop: 01/14/18 10:01 Lidocaine HCl (Xylocaine 2%) 1 ea TOP BID [facility] Last Admin: 01/13/18 17:34 Dose: 1 appl Lisinopril (Zestril) 10 mg PO DAILY [facility] Last Admin: 01/13/18 09:53 Dose: 10 mg Oxycodone HCl (Oxycodone Immediate Release Tab) 20 mg PO Q6H PRN PRN Reason: Pain, severe (8-10) Last Admin: 01/14/18 05:05 Dose: 20 mg - Labs Labs: 01/13/18 11:24 01/13/18 11:24 Assessment and Plan (1) CKD (chronic kidney disease), stage III Status: Acute (2) Renal cell cancer Status: Acute (3) Leg swelling Status: Acute Attending/Attestation - Attestation I have personally seen and examined this patient.: Yes I have fully participated in the care of the patient.: Yes I have reviewed all pertinent clinical information, including history, physical exam and plan: Yes Notes (Text): Patient seen and examined; I agree with the resident's note as above with the following additions/edits: 62 yo M w/ renal cell CA s/p R nephrectomy with newly diagnosed mets, CKD IIIB, COPD, admitted after recurrent falls; Still with persistent b/l lower leg edema; LE venous duplex negative for thrombus or valvular insufficiency; Patient does have 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
[2018-01-13] MEDS: Enoxaparin 40 mg Syringe SC SCH (09:52)
[2018-01-13] MEDS ORDERED: Pneumococcal 23-Valent Vaccine IM ONE (10:00)
[2018-01-13] MEDS: Lidocaine 2% Jelly (30 ml) TOP SCH ×2 (10:09→17:34)
[2018-01-13 10:43] LABS: ALBUMIN (PEP) 3.2 g/dL (3.8-4.8); ALPHA-1-GLOBULIN (PEP) 0.4 g/dL (0.2-0.3)
[2018-01-13 11:31] LABS: BASO % 0.5 % (0.0-2.0); EOS # 0.3 K/uL (0.0-0.7); EOS % 5.1 % (0.0-4.0); HEMOGLOBIN 12.2 g/dL (12.0-18.0); LYMPH # 1.4 K/uL (1.0-4.3); LYMPH % 23.3 % (20.0-40.0); MEAN CELL VOLUME 83.8 fL (80.0-94.0); MEAN CORPUSCULAR HEMOGLOBIN 28.6 pg (27.0-31.0); MEAN CORPUSCULAR HGB CONC 34.1 g/dL (33.0-37.0); MEAN PLATELET VOLUME 8.1 fL (7.2-11.7); MONO # 0.6 K/uL (0.0-0.8); MONO % 10.3 % (0.0-10.0); NEUT # 3.6 K/uL (1.8-7.0); NEUT % 60.8 % (50.0-75.0); RBC 4.26 Mil/uL (4.40-5.90); RED CELL DISTRIBUTION WIDTH 14.6 % (11.5-14.5); WHITE BLOOD COUNT 5.9 K/uL (4.8-10.8)
[2018-01-13 11:50] LABS: ALBUMIN 3.3 g/dL (3.5-5.0); CALCIUM 8.5 mg/dl (8.6-10.4); URIC ACID 7.1 mg/dL (3.5-8.5)
--- NOTE | 2018-01-13 13:08 | PN ---
DATE: 01/13/2018 SUBJECTIVE: This is a 62-year-old male seen and examined in rounds without significant clinical changes with intermittent period of shortness of breath on exertion, on and off, without chest pain, palpitation, hematemesis, hemoptysis, chills or fever with slight nausea and dyspepsia, but mild abdominal pain on and off. The entire chart is reviewed including, but not limited to most recent lab and radiology study results, current and the previous medication list, current and the previous medical events. Case discussed with the staff at length. Today's lab is still pending. However, the patient still has by recent history elevated AST and ALT, but normal cancer markers. PHYSICAL EXAMINATION: GENERAL: A 62-year-old male, afebrile with pulse of 80, respiratory 20-22, blood pressure of 124/68. HEENT: Showed pale dry oral mucoid membrane. Nonicteric sclerae. LUNGS: Few scattered crepitation. Decreased air entry at bases. HEART: Positive S1 and S2. ABDOMEN: Soft with mild generalized tenderness. No mass or organomegaly. No rebound tenderness or guarding. EXTREMITIES: Without edema, clubbing or cyanosis. IMPRESSION: 1. Known history of hepatitis C viral infection by recent studies. 2. Abnormal liver function test secondary to above. 3. Known history of renal cell carcinoma with metastatic lesion to the lung. 4. History of but not limited to diabetes mellitus, hypertension, congestive heart failure, obesity with depression. 5. Chronic lower back pain syndrome. 6. Status post tonsillectomy, nephrectomy as well as meniscus repair done surgically by history. SUGGESTIONS; 1. Continue current management. 2. ID consultation. 3. The patient is to be treated for his hepatitis C viral infection as outpatient. 4. Further recommendation to follow. Jodi Schmitt MD
--- NOTE | 2018-01-13 14:06 | VASCLAB ---
Date of service: 01/13/2018 PROCEDURE: Left Lower Extremity Venous Duplex Exam. HISTORY: swelling, redness PRIORS: None. TECHNIQUE: Left common femoral, femoral, popliteal and posterior tibial, peroneal and great saphenous veins were evaluated. Flow was assessed with color Doppler, compressibility, assessment of phasic flow and augmentation response. Report prepared by SHANIA Oneal, RVT FINDINGS: LEFT: 1. Common Femoral Vein: 1.1. Compressibility - Fully compressible: Thrombus - None : Flow - Phasic: Augmentation -Normal: Reflux - None. 2. Femoral Vein: 2.1. Compressibility - Fully compressible: Thrombus - None: Flow - Phasic: Augmentation -Normal: Reflux - None. 3. Popliteal Vein: 3.1. Compressibility - Fully compressible: Thrombus - None: Flow - Phasic: Augmentation -Normal: Reflux - None. 4. Posterior Tibial Vein: 4.1. Compressibility - Fully compressible: Thrombus - None: Flow - Phasic: Augmentation -Normal: Reflux - None. 5. Peroneal Vein: 5.1. Compressibility - Fully compressible: Thrombus - None: Flow - Phasic: Augmentation -Normal: Reflux - None. 6. Great Saphenous Vein: 6.1. Compressibility - Fully compressible: Thrombus - None: Flow - Phasic: Augmentation - Normal: Reflux - None. OTHER FINDINGS: IMPRESSION: No evidence of deep or superficial vein thrombosis of the left lower extremity with excellent venous flow. Normal valve function noted of the left side. Normal venous flow noted in the right common femoral vein.
[2018-01-13 19:36] LABS: SQUAMOUS EPITHIAL 1 /hpf (0-5); URINE BILIRUBIN NEGATIVE (NEGATIVE); URINE BLOOD 1+ (NEGATIVE); URINE CLARITY Clear (Clear); URINE COLOR Yellow (YELLOW); URINE GLUCOSE (UA) NORMAL (Normal); URINE LEUKOCYTE ESTERASE NEG Leu/uL (Negative); URINE PROTEIN NEGATIVE (NEGATIVE)
--- NOTE | 2018-01-13 23:15 | CP.PCM.PN ---
Subjective - Date & Time of Evaluation Date of Evaluation: 01/13/18 Time of Evaluation: 12:00 - Subjective Subjective: Has pain in feet Objective - Vital Signs/Intake and Output Vital Signs (last 24 hours): Temp Pulse Resp BP Pulse Ox 97.6 F 83 20 115/68 95 01/13/18 16:00 01/13/18 16:00 01/13/18 16:00 01/13/18 16:00 01/13/18 16:00 Intake and Output: 01/13/18 01/14/18 18:59 06:59 Intake Total 1400 650 Output Total 1000 800 Balance 400 -150 - Medications Medications: Current Medications Albuterol/Ipratropium (Duoneb 3 Mg/0.5 Mg (3 Ml) Ud) 3 ml INH RQ6 PRN PRN Reason: Shortness of Breath Aspirin (Ecotrin) 81 mg PO DAILY [facility] Last Admin: 01/13/18 09:53 Dose: 81 mg Enoxaparin Sodium (Lovenox) 40 mg SC DAILY [facility] Last Admin: 01/13/18 09:52 Dose: 40 mg Famotidine (Pepcid) 20 mg IVP Q12H [facility] Last Admin: 01/13/18 21:37 Dose: 20 mg Dextrose/Sodium Chloride (Dextrose 5%/0.45% Ns 1000 Ml) 1,000 mls @ 100 mls/hr IV .Q10H [facility] Last Admin: 01/13/18 19:13 Dose: Not Given Influenza Virus Vaccine (Fluzone Quad [id number]) 60 mcg IM .ONCE ONE Stop: 01/14/18 10:01 Lidocaine HCl (Xylocaine 2%) 1 ea TOP BID [facility] Last Admin: 01/13/18 17:34 Dose: 1 appl Lisinopril (Zestril) 10 mg PO DAILY [facility] Last Admin: 01/13/18 09:53 Dose: 10 mg Oxycodone HCl (Oxycodone Immediate Release Tab) 20 mg PO Q6H PRN PRN Reason: Pain, severe (8-10) Last Admin: 01/13/18 22:00 Dose: 20 mg - Labs Labs: 01/13/18 11:24 01/13/18 11:24 - Head Exam Head Exam: ATRAUMATIC - Eye Exam Eye Exam: Normal appearance - ENT Exam ENT Exam: Mucous Membranes Dry - Respiratory Exam Respiratory Exam: NORMAL BREATHING PATTERN - Cardiovascular Exam Cardiovascular Exam: +S1, +S2 - GI/Abdominal Exam GI & Abdominal Exam: Normal Bowel Sounds - Extremities Exam Extremities Exam: Pedal Edema Assessment and Plan (1) Renal cancer Assessment & Plan: with lung metastasis would benefit from outpatient immunotherapy to get an opinion at [facility] [place] and may wish to be treated locally with me outpatient f/u Status: Acute (2) Anemia Assessment & Plan: anemia of chronic disease Status: Acute
[2018-01-14] MEDS: Dextrose 5%/0.45% NS 1,000 ML IV SCH ×2 (05:00→15:39)
[2018-01-14] MEDS: oxyCODONE 10 mg Immediate Release Tab PO PRN ×3 (05:05→19:12)
[2018-01-14] MEDS: Enoxaparin 40 mg Syringe SC SCH (09:22)
[2018-01-14] MEDS: Lidocaine 2% Jelly (30 ml) TOP SCH ×2 (09:49→17:19)
[2018-01-14] MEDS ORDERED: Influenza Vaccine 60 MCG/0.5 ML SYR (3 yr & up) IM ONE (10:00)
--- NOTE | 2018-01-14 12:00 | PN ---
DATE: 01/14/2018 LOCATION: 359, bed A. SUBJECTIVE: This 62-year-old male seen and examined in rounds without significant clinical changes. No reported active bleeding, but a complaint of generalized weakness and malaise. No chest pain, palpitation or significant shortness of breath. No chills or fever reported. The entire chart is reviewed including but not limited to the most recent lab and radiology study results, current and the previous medication list, current and the previous medical events and today's lab showed blood glucose level of 81. Rest of lab results still pending. However, the patient still has elevated AST and ALT with low albumin, but reported normal cancer markers including alpha-fetoprotein, CEA and CA 19-9. PHYSICAL EXAMINATION: GENERAL: A 62-year-old male, afebrile with pulse of 78, respiratory rate 20-22, blood pressure of 150/78. HEENT: Showed pale dry oral mucous membrane. Nonicteric sclerae. LUNGS: Few scattered crepitation. Decreased air entry at bases. HEART: Positive S1 and S2. ABDOMEN: Soft with mild generalized tenderness. No mass or organomegaly. No rebound tenderness or guarding. EXTREMITIES: Lower extremities mild tenderness with slight edematous changes. No clubbing or cyanosis. NEUROLOGIC: No reported new neurological deficits, sensory or motor. IMPRESSION: 1. Renal cancer by history with metastatic lesion to the lung. 2. Re-exacerbation of peptic ulcer disease. 3. Anemia that could be secondary to above versus chronic disease and/or recent gastrointestinal blood loss. 4. Abnormal liver function tests due to a known history of hepatitis C viral infection, as reported. 5. Known history of hypertension, diabetes mellitus, congestive heart failure, depression and obesity. 6. Chronic lower back pain syndrome. 7. Status post nephrectomy, tonsillectomy by history. SUGGESTIONS: 1. Continue current management. 2. Guaiac all the stools daily x3. The patient's treatment for hepatitis C infection to be managed as outpatient. Further recommendation to follow. Jodi Schmitt MD
[2018-01-14 12:01] LABS: ALB/GLOB RATIO 1.1 (1.0-2.1); ALBUMIN 3.5 g/dL (3.5-5.0); CALCIUM 9.2 mg/dl (8.6-10.4)
--- NOTE | 2018-01-14 19:41 | CARD ---
APPROVED REPORT Date of service: 01/14/2018 EXAM: Two-dimensional and M-mode echocardiogram with Doppler and color Doppler. Other Information Quality : PoorRhythm : NSR INDICATION Cardiomyopathy Pulmonary Hypertention COPD RISK FACTORS Hypertension Obesity M-Mode DIMENSIONS Left Atrium (MM)4.06 (2.5-4.0cm)IVSd1.29 (0.7-1.1cm) Aortic Root4.01 (2.2-3.7cm)LVDd6.39 (4.0-5.6cm) Aortic Cusp Exc.2.39 (1.5-2.0cm)PWd1.29 (0.7-1.1cm) FS (%) 24 %LVDs4.87 (2.0-3.8cm) LVEF (%)47 (>50%) Aortic Valve AoV Peak Lobpmpcd364.4cm/Eliel Peak GR.5mmHg Mitral Valve MV E Chdzltem86.1cm/sMV A Mbjynhye62.3cm/sE/A ratio1.0 TDI E/Lateral E'0.0E/Medial E'0.0 Tricuspid Valve TR Peak [id number]/sTR Peak Gr.[id number] LEFT VENTRICLE The left ventricle is normal size. There is normal left ventricular wall thickness. Left ventricle systolic function is borderline. The Ejection Fraction is 45-50%. There is normal LV segmental wall motion. The left ventricular diastolic function is normal. No left ventricle thrombus noted on this study. RIGHT VENTRICLE The right ventricle is normal size. There is normal right ventricular wall thickness. The right ventricular systolic function is normal. ATRIA The left atrium is borderline dilated. The right atrium size is normal. The interatrial septum is intact with no evidence for an atrial septal defect. AORTIC VALVE The aortic valve is normal in structure. No aortic regurgitation is present. There is no aortic valvular stenosis. There is no aortic valvular vegetation. MITRAL VALVE The mitral valve is normal in structure. There is no evidence of mitral valve prolapse. There is no mitral valve stenosis. There is no mitral valve regurgitation noted. TRICUSPID VALVE The tricuspid valve is normal in structure. There is trace tricuspid regurgitation. Right ventricular systolic pressure is estimated at less than 30 mmHg. There is no pulmonary hypertension. PULMONIC VALVE The pulmonic valve is not well visualized. There is no pulmonic valvular regurgitation. GREAT VESSELS The aortic root is normal in size. PERICARDIAL EFFUSION There is no significant pericardial effusion. <Conclusion> Left ventricle systolic function is borderline. The Ejection Fraction is 45-50%. No aortic regurgitation is present. There is no mitral valve regurgitation noted. There is trace tricuspid regurgitation. There is no pulmonary hypertension. There is no pulmonic valvular regurgitation.
[2018-01-15] MEDS: oxyCODONE 10 mg Immediate Release Tab PO PRN ×4 (00:31→21:54)
--- NOTE | 2018-01-15 07:36 | CP.PCM.PN ---
Subjective - Date & Time of Evaluation Date of Evaluation: 01/14/18 Time of Evaluation: 18:00 - Subjective Subjective: Patient complaining of b/l leg swelling with associated pain; also hasn't had BM in 1 week; tolerating diet well; wants more pain medication (reportedly on ER morphine bid at home); Objective - Vital Signs/Intake and Output Vital Signs (last 24 hours): Temp Pulse Resp BP Pulse Ox 97.9 F 81 20 127/85 98 01/15/18 00:00 01/15/18 00:00 01/15/18 00:00 01/15/18 00:00 01/15/18 00:00 Intake and Output: 01/15/18 01/15/18 06:59 18:59 Intake Total 300 Output Total 600 Balance -300 - Medications Medications: Current Medications Albuterol/Ipratropium (Duoneb 3 Mg/0.5 Mg (3 Ml) Ud) 3 ml INH RQ6 PRN PRN Reason: Shortness of Breath Aspirin (Ecotrin) 81 mg PO DAILY [facility] Last Admin: 01/14/18 09:19 Dose: 81 mg Enoxaparin Sodium (Lovenox) 40 mg SC DAILY [facility] Last Admin: 01/14/18 09:22 Dose: 40 mg Famotidine (Pepcid) 20 mg PO Q12H [facility] Last Admin: 01/14/18 21:33 Dose: 20 mg Furosemide (Lasix) 40 mg PO DAILY [facility] Last Admin: 01/14/18 11:43 Dose: 40 mg Gabapentin (Neurontin) 100 mg PO BID [facility] Last Admin: 01/14/18 19:15 Dose: 100 mg Lactulose (Enulose) 20 gm PO DAILY [facility] Last Admin: 01/14/18 19:15 Dose: 20 gm Lidocaine HCl (Xylocaine 2%) 1 ea TOP BID [facility] Last Admin: 01/14/18 17:19 Dose: 1 appl Lisinopril (Zestril) 10 mg PO DAILY [facility] Last Admin: 01/14/18 09:22 Dose: 10 mg Oxycodone HCl (Oxycodone Immediate Release Tab) 20 mg PO Q6H PRN PRN Reason: Pain, severe (8-10) Last Admin: 01/15/18 06:56 Dose: 20 mg - Labs Labs: 01/13/18 11:24 01/14/18 10:43 - Constitutional Appears: Non-toxic, No Acute Distress - Eye Exam Eye Exam: Normal appearance - Respiratory Exam Respiratory Exam: Clear to Ausculation Bilateral. absent: Respiratory Distress - Cardiovascular Exam Cardiovascular Exam: RRR, +S1, +S2 - GI/Abdominal Exam GI & Abdominal Exam: Soft. absent: Distended, Tenderness - Extremities Exam Additional comments: moderate b/l lower leg edema; - Neurological Exam Neurological Exam: Alert, Awake - Psychiatric Exam Psychiatric exam: Normal Affect, Normal Mood. absent: Agitated - Skin Skin Exam: Warm. absent: Cyanosis Assessment and Plan (1) CKD (chronic kidney disease), stage III Assessment & Plan: Stable renal function with solitary kidney; has mild proteinuria and should be kept on RAHEL inhibitor; patient's neurologic symptoms at home could have been due to high gabapentin and morphine dose (metabolite accumulate in renal failure); advised that he would likely need to find an alternative to morphine; should also avoid excessive mag citrate to avoid toxicity (was using every 3 days for constipation); -avoid nephrotoxic agents; -restarting gabapentin at low dose (100 mg bid); -giving lactulose for constipation; Status: Chronic (2) Leg swelling Assessment & Plan: Etiology not entirely clear; repeat echo unremarkable; has significant CKD which can cause sodium retention although patient is not hypertensive; -agree with lasix 40 mg PO daily; -low Na diet; Status: Acute (3) Renal cell cancer Assessment & Plan: With recently reported lung mets, needs outpatient f/u; Status: Acute
[2018-01-15] MEDS: Enoxaparin 40 mg Syringe SC SCH (09:51)
[2018-01-15] MEDS: Lidocaine 2% Jelly (30 ml) TOP SCH ×2 (10:07→17:30)
[2018-01-15 11:44] LABS: ALBUMIN 3.7 g/dL (3.5-5.0); CALCIUM 9.2 mg/dl (8.6-10.4)
[2018-01-16] MEDS: oxyCODONE 10 mg Immediate Release Tab PO PRN ×5 (03:51→22:01)
--- NOTE | 2018-01-16 07:41 | PN ---
DATE: 01/15/2018 SUBJECTIVE: The patient gets supportive care and antibiotics, had diuresis. Dc Fofana MD
[2018-01-16] MEDS ORDERED: Oxycodone/Acetaminophen 5/325 mg Tab PO PRN ×2 (09:14→09:30)
[2018-01-16] MEDS ORDERED: oxyCODONE 10 mg Immediate Release Tab PO PRN (09:15)
[2018-01-16] MEDS: Enoxaparin 40 mg Syringe SC SCH (09:55)
[2018-01-16] MEDS: Lidocaine 2% Jelly (30 ml) TOP SCH (10:06)
--- NOTE | 2018-01-16 11:21 | CP.PCM.PN ---
Subjective - Date & Time of Evaluation Date of Evaluation: 01/16/18 Time of Evaluation: 11:20 - Subjective Subjective: PGY3 Note for Dr. Fofana This patient was seen and examined at bedside this AM; patient states that he is upset he did not get his normal 20mg of oxycontin which was promptly restarted. The patient denies fevers/chills, DACOSTA, CP, SOb, abdominal pain, N/V/D, dysuria/freq/urg or lower extremity pain. Objective - Vital Signs/Intake and Output Vital Signs (last 24 hours): Temp Pulse Resp BP Pulse Ox 97.5 F L 87 20 120/71 96 01/16/18 07:55 01/16/18 07:55 01/16/18 07:55 01/16/18 09:58 01/16/18 07:55 Intake and Output: 01/16/18 01/16/18 06:59 18:59 Intake Total 500 Balance 500 - Medications Medications: Current Medications Albuterol/Ipratropium (Duoneb 3 Mg/0.5 Mg (3 Ml) Ud) 3 ml INH RQ6 PRN PRN Reason: Shortness of Breath Aspirin (Ecotrin) 81 mg PO DAILY [facility] Last Admin: 01/16/18 09:57 Dose: 81 mg Enoxaparin Sodium (Lovenox) 40 mg SC DAILY [facility] Last Admin: 01/16/18 09:55 Dose: 40 mg Famotidine (Pepcid) 20 mg PO Q12H [facility] Last Admin: 01/16/18 09:55 Dose: 20 mg Furosemide (Lasix) 40 mg PO DAILY [facility] Last Admin: 01/16/18 09:58 Dose: 40 mg Gabapentin (Neurontin) 100 mg PO BID [facility] Last Admin: 01/16/18 09:54 Dose: 100 mg Lactulose (Enulose) 20 gm PO DAILY [facility] Last Admin: 01/16/18 10:05 Dose: 20 gm Lidocaine HCl (Xylocaine 2%) 2 ea TOP BID [facility] Lisinopril (Zestril) 10 mg PO DAILY [facility] Last Admin: 01/16/18 09:55 Dose: 10 mg Oxycodone HCl (Oxycodone Immediate Release Tab) 20 mg PO Q6 PRN PRN Reason: Pain, severe (8-10) Oxycodone HCl (Oxycodone Immediate Release Tab) 10 mg PO Q6 PRN PRN Reason: break through pain - Labs Labs: 01/13/18 11:24 01/15/18 11:25 Assessment and Plan - Assessment and Plan (Free Text) Assessment: Appears: No Acute Distress, unkempt - Head Exam Head Exam: ATRAUMATIC, NORMAL INSPECTION - Eye Exam Eye Exam: EOMI, Normal appearance - ENT Exam ENT Exam: Mucous Membranes Moist - Respiratory Exam Respiratory Exam: Decreased Breath Sounds, NORMAL BREATHING PATTERN. absent: Rales, Rhonchi, Wheezes - Cardiovascular Exam Cardiovascular Exam: REGULAR RHYTHM, +S1, +S2 - GI/Abdominal Exam GI & Abdominal Exam: Soft, Normal Bowel Sounds. absent: Distended, Firm, Guarding, Tenderness Additional comments: obese - Extremities Exam Extremities Exam: Pedal Edema (b/l, right > left), Tenderness (b/l, right > l eft) - Back Exam Back Exam: absent: paraspinal tenderness, rash noted, tenderness (no tenderness with palpation) - Neurological Exam Neurological Exam: Alert, Awake - Psychiatric Exam Psychiatric exam: Normal Affect, Normal Mood - Skin Skin Exam: Dry, Intact, Warm Assessment and Plan - Assessment and Plan (Free Text) Plan: Back pain - Possibly 2/2 mets - Lumbar spine xray: negative - PT/OT Hx of renal cell cancer - history of renal cell carcinoma with nephrectomy in 2008; has not had further treatment - mets to the lungs - heme/onc consult. Dr. Willoughby. recs appreciated. * Per Dr. Willoughby, patient would benefit from outpatient immunotherapy - nephrology consult. Dr. Leyva. camron appreciated. * Further workup pending: random urine protein, microalbumin, and creatinine, GLADIS, SPEP/IF, serum free light chains * Echo: incomplete test as patient did not want to continue; grossly normal EF * Avoid nephrotoxic agents CKD Stage IIIB - Proteinuria on UA - Elevated creatinine - Nephrology consult. Dr. Leyva. recs appreciated. * Further workup pending: random urine protein, microalbumin, and creatinine, GLADIS, SPEP/IF, serum free light chains * Echo: incomplete test as patient did not want to continue; grossly normal EF Stasis dermatitis/PVD/LE edema - LE venous dopplers- negative - Echo: incomplete test as patient did not want to continue; grossly normal EF - Vascular surgery consult. Dr. Reyes. recs appreciated. - Lasix 20mg PO given once on 01/13/18 Hx of DM - A1c 5.8 - Lipid panel: TG 83, Chol 119, LDL 60, HDL 52 - Hold metformin - Accuchecks - Hypoglycemia protocol Dyslipidemia - A1c 5.8 - Lipid panel: TG 83, Chol 119, LDL 60, HDL 52 Transaminitis - Hep C Ab + - Abdominal ultrasound: limited study, hepatomegaly, echogenic liver may be seen in setting of hepatic parenchymal disease or fatty infiltration; splenomegaly; left renal cysts; nonobstructing calculi, right nephrectomy - GI consult. recs appreciated. Dr. Liang - Tumor markers: cea, ca19-9, AFP within normal range Hx of COPD - Duonebs - Pulmonary Dr. Fofana also on case. hx of sleep apnea - needs sleep study - Bipap HS morbid obesity - Diet and lifestyle modifications Prophylaxis - DVT: Lovenox 40units SC daily - GI: Protonix daily - PT/OT - Palliative care for goals of care The patient is stable for d/c as per Dr. Fofana the patient is to followup with [facility] for his cancer treatment it is encouraged to have a POLST done by the patient so that he can have his wishes known in writing to family and medical providers going forward please take prescriptions as prescribed avoid nephrotoxic agents such as NSAIDS All medical management per Dr. Fofana.
[2018-01-16] MEDS ORDERED: Lidocaine 2% Jelly (Uro-Jet) TOP SCH (11:30)
--- NOTE | 2018-01-16 12:23 | CP.PCM.CON ---
History of Present Illness - History of Present Illness History of Present Illness: Palliative consult requested by Doctor Cramer for goals of care discussion Patient is a 62 yo male admitted from home with complains of "moderate back pain". On admission patient stated " people at my home are stealing my pills". Patient complained of progressive dyspnea and frequent falls due to LEs pain. CXR, CT head and Doppler studies , all were negative acute findings on this admission. GI consult called due to Hx of Hep C and outpatient treatment advised. Doctor Fartun called for Onco due to stage IV renal CA with mets to lungs. Outpatient immune therapy recommended. Patient is currently under care at [facility] and his fallo w up appointment is January.. Patient 's main complaint on this admission is his chronic pain of LEs, R>L. Patient is ordered Percocet and Oxycodone PRN with good relief. PMH: Hep C, CHF, COPD, HTN, chronic back pain, stage IV renal cancer with lung mets, S/P right nephrectomy 2007 Soc. Hx: , lives alone, stopped smoking 5 years ago, denies smoking cigarettes, 2 years ago Fam. Hx: brother from laringeal cancer Review of Systems - Constitutional Constitutional: absent: As Per HPI, Anorexia, Chills, Daytime Sleepiness, Excessive Sweating, Fatigue, Fever, Frequent Falls, Headache, Increased Appet ite, Lethargy, Malaise, Night Sweats, Snoring, Sleep Apnea, Weight Gain, Weight Loss, Weakness, Other - EENT Eyes: absent: As Per HPI, Blind Spots, Blurred Vision, Change in Vision, Decreased Night Vision, Diplopia, Discharge, Dry Eye, Exophthalmos, Floaters, I rritation, Itchy Eyes, Loss of Peripheral Vision, Pain, Photophobia, Requires Corrective Lenses, Sees Flashes, Spots in Vision, Tunnel Vision, Other Visual Disturbances, Loss of Vision, Other Ears: absent: As Per HPI, Decreased Hearing, Ear Discharge, Ear Pain, Tinnitus, Abnormal Hearing, Disequilibrium, Dizziness, Other Nose/Mouth/Throat: absent: As Per HPI, Epistaxis, Nasal Congestion, Nasal Discharge, Nasal Obstruction, Nasal Trauma, Nose Pain, Post Nasal Drip, Sinus Pain, Sinus Pressure, Bleeding Gums, Change in Voice, Dental Pain, Dry Mouth, Dysphagia, Halitosis, Hoarsness, Lip Swelling, Mouth Lesions, Mouth Pain, Odynophagia, Sore Throat, Throat Swelling, Tongue Swelling, Facial Pain, Neck Pain, Neck Mass, Other - Cardiovascular Cardiovascular: Dyspnea, Dyspnea on Exertion, Pedal Edema, Radiating Pain - Respiratory Respiratory: Dyspnea on Exertion - Gastrointestinal Gastrointestinal: Fecal Incontinence - Genitourinary Genitourinary: absent: As Per HPI, Change in Urinary Stream, Difficulty Urinating, Dysuria, Flank Pain, Hematuria, Pyuria, Nocturia, Urinary Incontinence, Urinary Frequency, Urinary Hesitance, Urinary Urgency, Voiding Freq/Small Amts, Freq UTI, Hx Renal/Bladder Calculi, Hx /Renal Surgery, Bladder Distension, Other - Musculoskeletal Musculoskeletal: Abnormal Gait, Arthralgias, Back Pain, Joint Swelling, Limited Range of Motion, Stiffness - Integumentary Integumentary: Change in Nails, Change in Pigmentation - Neurological Neurological: Abnormal Gait - Psychiatric Psychiatric: absent: As Per HPI, Abnormal Sleep Pattern, Anhedonia, Anxiety, Auditory Hallucinations, Behavioral Changes, Change in Appetite, Change in Libido, Confusion, Depression, Difficulty Concentrating, Hallucinations, Homi cidal Ideation, Hopelessness, Irritability, Memory Loss, Mood Swings, Panic Attacks, Paranoia, Suicidal Ideation, Visual Hallucinations, Tactile Hallucinations, Other - Endocrine Endocrine: absent: As Per HPI, Change in Body Appearance, Change in Libido, Cold Intolorance, Deepening of Voice, Excessive Sweating, Fatigue, Flushing, Heat Intolorance, Increase in Ring/Shoe/Hat Size, Palpitations, Polydipsia, Polyphagia, Polyuria, Other - Hematologic/Lymphatic Hematologic: absent: As Per HPI, Easy Bleeding, Easy Bruising, Lymphadenopathy, Other Past Patient History - Infectious Disease Hx of Infectious Diseases: None - Past Medical History & Family History Past Medical History?: Yes - Past Social History Smoking Status: Former Smoker - CARDIAC Hx Hypertension: Yes - PULMONARY Hx Chronic Obstructive Pulmonary Disease (COPD): Yes - NEUROLOGICAL Hx Neurological Disorder: No Hx Paralysis: No - HEENT Hx HEENT Problems: No - RENAL Hx Chronic Kidney Disease: Yes Other/Comment: Renal Ca of R kidney, nephrectomy - ENDOCRINE/METABOLIC Hx Diabetes Mellitus Type 2: Yes - HEMATOLOGICAL/ONCOLOGICAL Hx Blood Transfusions: No - INTEGUMENTARY Hx Dermatological Problems: No - MUSCULOSKELETAL/RHEUMATOLOGICAL Hx Arthritis: Yes (BACK; B/L KNEES) - GASTROINTESTINAL Hx Gastrointestinal Disorders: No - GENITOURINARY/GYNECOLOGICAL Hx Genitourinary Disorders: No - PSYCHIATRIC Hx Substance Use: No - SURGICAL HISTORY Hx Tonsillectomy: Yes - ANESTHESIA Hx Anesthesia: Yes Hx Anesthesia Reactions: No Hx Malignant Hyperthermia: No Has any member of the family had a problem w/ anesthesia?: No Meds Home Medications: Home Medication List Medication Instructions Recorded Confirmed Type Aspirin [Ecotrin] 81 mg PO DAILY #30 tablet.dr 01/16/18 Rx Clopidogrel [Plavix] 75 mg PO DAILY #30 tab 01/16/18 Rx Furosemide [Lasix] 20 mg PO DAILY #30 tablet 01/16/18 Rx Lactulose 20 gm PO BID PRN #60 solution 01/16/18 Rx Lisinopril [Prinivil] 10 mg PO DAILY #30 tablet 01/16/18 Rx Rosuvastatin Calcium [Crestor] 10 mg PO HS #30 tab 01/16/18 Rx Walker [Rolling Walker] 1 dev XX PRN PRN #1 dev 01/16/18 Rx Allergies/Adverse Reactions: Allergies Allergy/AdvReac Type Severity Reaction Status Date / Time No Known Allergies Allergy Verified 01/11/18 06:58 - Medications Medications: Current Medications Albuterol/Ipratropium (Duoneb 3 Mg/0.5 Mg (3 Ml) Ud) 3 ml INH RQ6 PRN PRN Reason: Shortness of Breath Aspirin (Ecotrin) 81 mg PO DAILY [facility] Last Admin: 01/16/18 09:57 Dose: 81 mg Enoxaparin Sodium (Lovenox) 40 mg SC DAILY [facility] Last Admin: 01/16/18 09:55 Dose: 40 mg Famotidine (Pepcid) 20 mg PO Q12H [facility] Last Admin: 01/16/18 09:55 Dose: 20 mg Furosemide (Lasix) 40 mg PO DAILY [facility] Last Admin: 01/16/18 09:58 Dose: 40 mg Gabapentin (Neurontin) 100 mg PO BID [facility] Last Admin: 01/16/18 09:54 Dose: 100 mg Lactulose (Enulose) 20 gm PO DAILY [facility] Last Admin: 01/16/18 10:05 Dose: 20 gm Lidocaine HCl (Xylocaine 2%) 2 ea TOP BID [facility] Lidocaine HCl (Xylocaine 2% (Uro-Jet)) 1 ea TOP BID [facility] Lisinopril (Zestril) 10 mg PO DAILY [facility] Last Admin: 01/16/18 09:55 Dose: 10 mg Oxycodone HCl (Oxycodone Immediate Release Tab) 20 mg PO Q6 PRN PRN Reason: Pain, severe (8-10) Oxycodone HCl (Oxycodone Immediate Release Tab) 10 mg PO Q6 PRN PRN Reason: break through pain Physical Exam - Constitutional Appears: Chronically Ill - Head Exam Head Exam: ATRAUMATIC, NORMAL INSPECTION, NORMOCEPHALIC - Eye Exam Eye Exam: EOMI, Normal appearance, PERRL Pupil Exam: NORMAL ACCOMODATION, PERRL - ENT Exam ENT Exam: Mucous Membranes Moist, Normal Exam - Neck Exam Neck exam: Positive for: Full Rom, Normal Inspection - Respiratory Exam Respiratory Exam: Decreased Breath Sounds, Prolonged Expiratory Phase, NORMAL BREATHING PATTERN - Cardiovascular Exam Cardiovascular Exam: Tachycardia, +S1, +S2 - GI/Abdominal Exam GI & Abdominal Exam: Diminished Bowel Sounds, Distended, Soft - Rectal Exam Rectal Exam: Deferred - Exam Exam: NORMAL INSPECTION - Extremities Exam Extremities exam: Positive for: calf tenderness, joint swelling, pedal edema - Back Exam Back exam: NORMAL INSPECTION - Neurological Exam Neurological exam: Alert, Oriented x3 - Psychiatric Exam Psychiatric exam: Depressed, Normal Affect, Normal Mood - Skin Skin Exam: Dry, Mottled, Normal Color, Petechiae Results - Vital Signs Recent Vital Signs: Last Vital Signs Temp 97.5 F L 01/16/18 07:55 Pulse 87 01/16/18 07:55 Resp 20 01/16/18 07:55 BP 120/71 01/16/18 09:58 Pulse Ox 96 01/16/18 07:55 - Labs Result Diagrams: 01/13/18 11:24 01/15/18 11:25 Labs: Laboratory Results - last 24 hr 01/12/18 01/15/18 01/15/18 08:05 16:05 21:03 POC Glucose (mg/dL) 86 128 H Serum Immunofixation Not detected 01/16/18 11:47 POC Glucose (mg/dL) 92 Serum Immunofixation Assessment & Plan - Assessment and Plan (Free Text) Assessment: Palliative consult Full Code, there is no Advance Directive on chart, PPS 40% I reviewed Medical records, all diagnostic studies, examined and interviewed patient in the chair Patient is alert, oriented X 3 with speech that is clear. Patient is obese . Breathing pattern is regular with diminished breath sounds. Patient gets SOB upon activity. Abdomen is large and softly distended. Patient reports frequent constipation due to Opioid use for pain management. Patient is ordered Lactulose PO. LEs are swollen, R>L and discolored. Patient complains severe pain to right leg. he reports 80% of his pain comes from his right leg. At home, patient visits Pain management office for pain management and is used to MS Contine and Oxycodone. Feet are swollen, pedal pulses are difficult to palpate by hand. BP 120/71, O2Sat 96 % RA. WBC 5.9, Hb 12.2, ESR 30 Goals of care discussed with patient. I reviewed his clinical presentation and elicited his understanding. He stated full understanding of his diagnosis and said " I am basically dying". Patient shared with me the decline in his health, especially after his . patient is concerned with his limited ability to ambulate what restricts him from food shopping and doing home chores. His sister in law Nneka, is helping him occasionally but he feels that he needs more help. Patient is concerned with his pain. He admits that he may had accidentally taken more of pain pills than prescribed. Patient reports writing down the time when the pill is taken, but sometimes he forgets to write it and takes another pain pill, thinking he was due for. Patient understands risks he puts himself into it. Patient is very focused on F/U appointment with his Oncologist at [facility]. Per ER report it was scheduled for 01/2018 but patient is insisting it was 12/2017. Patient cried occasionally throughout this interview. He feels becoming a burden to his sister in law and wishes he was more independent. Code status discussed. POLST interviewed. Patient was very clear that he would not want any extreme measures to support his life if meaningful recovery was not expected. Patient believes he had made Living Will but was not sure where it was. Patient did not want to sign any document at this time without prior discussion with his sister in law Early. Patient wants his sister in law Early [phone], to be his advocate and surrogate decision maker. The contact number provided on face sheet at this admission is non working number and belonged to his . Doctor Ct and vice president of procurement Doctor Darryl Sherwood joined discussion at the end and was decided that patient was ready for discharge home today, what made him very happy. Impression * Chronically ill male with metastatic cancer * Chronic pain of LEs, most likely PVD * Constipation opioid induced * Unsteady gait * Frequent falls * Lack of family support * Feeling of isolation due to inability to ambulate freely * Requesting his sister in law Nneka ) to be his advocate decision maker * Expresses wishes against aggressive measures ( MV, CPR, PEG), but wants to discuss it first with his sister in law before signing POLS Suggestions * Pain management as of present * Elevate LEs while in chair * Continue Lasix * Monitor K level * Continue Lactulose * Would consider VNS * Walker at home * FULL CODEat present * Sister in law Nneka, surrogate decision maker * Agree with discharge home today Palliative care will sign off at this time. Advance care planing 50 min
--- NOTE | 2018-01-16 14:25 | PN ---
DATE: 01/16/2018 LOCATION: 369, bed A. SUBJECTIVE: This is a 62-year-old male seen and examined in rounds without any significant clinical changes or reported active bleeding, but generalized weakness and malaise with muscle pain and tenderness. No reported hematemesis, actual chest pain, palpitations, or significant increase of shortness of breath. Today's lab results still pending, but the patient is still having mildly elevated BUN and creatinine with increased blood glucose level on and off. PHYSICAL EXAMINATION: GENERAL: A 62-year-old male. VITAL SIGNS: Afebrile with pulse of 82, respiratory rate 18 to 20 with blood pressure of 124/66. HEENT: Mildly pale, dry oral mucous membrane. Nonicteric sclerae. LUNGS: Few scattered crepitation. Decreased air entry at bases. HEART: Positive S1 and S2. ABDOMEN: Soft with mild generalized tenderness. No mass or organomegaly. No rebound tenderness or guarding. EXTREMITIES: With mild lower extremity edematous changes. No clubbing or cyanosis. NEUROLOGICAL: No reported new neurological deficits, sensory, or motor. IMPRESSION: 1. Renal carcinoma. 2. Peptic ulcer disease. 3. Anemia secondary to above. 4. Abnormal liver function test with reported history of hepatitis C viral infection. 5. Known history of diabetes mellitus, hypertension, congestive heart failure. 6. Obesity with known history of depression. 7. Chronic lower back pain syndrome. SUGGESTIONS: 1. Continue current management. 2. Monospot. 3. Initial treatment of his hepatitis C to be performed and started as outpatient upon discharging the patient from the hospital with close observation, that could be done also through the ID learning consultant. 4. Further recommendation to follow. Jodi Schmitt MD
[2018-01-16] MEDS ORDERED: Lidocaine 2% Jelly (30 ml) TOP SCH (18:00)
[2018-01-16] MEDS ORDERED: Lidocaine 5% Oint(35 gm) TOP SCH (18:00)
--- NOTE | 2018-01-16 22:45 | CP.PCM.PN ---
Subjective - Date & Time of Evaluation Date of Evaluation: 01/14/18 Time of Evaluation: 16:00 - Subjective Subjective: Has pain in feet. Objective - Vital Signs/Intake and Output Vital Signs (last 24 hours): Temp Pulse Resp BP Pulse Ox 98.0 F 86 20 119/74 95 01/16/18 15:00 01/16/18 15:00 01/16/18 15:00 01/16/18 15:00 01/16/18 15:00 Intake and Output: 01/16/18 01/17/18 18:59 06:59 Intake Total 500 Balance 500 - Medications Medications: Current Medications Aspirin (Ecotrin) 81 mg PO DAILY [facility] Last Admin: 01/16/18 09:57 Dose: 81 mg Enoxaparin Sodium (Lovenox) 40 mg SC DAILY [facility] Last Admin: 01/16/18 09:55 Dose: 40 mg Famotidine (Pepcid) 20 mg PO Q12H [facility] Last Admin: 01/16/18 22:02 Dose: 20 mg Furosemide (Lasix) 40 mg PO DAILY [facility] Last Admin: 01/16/18 09:58 Dose: 40 mg Gabapentin (Neurontin) 100 mg PO BID [facility] Last Admin: 01/16/18 17:51 Dose: 100 mg Lactulose (Enulose) 20 gm PO DAILY [facility] Last Admin: 01/16/18 10:05 Dose: 20 gm Lidocaine (Lidocaine 5%) 0 gm TOP BID [facility] Last Admin: 01/16/18 18:22 Dose: 1 applic Lisinopril (Zestril) 10 mg PO DAILY [facility] Last Admin: 01/16/18 09:55 Dose: 10 mg Oxycodone HCl (Oxycodone Immediate Release Tab) 20 mg PO Q6 PRN PRN Reason: Pain, severe (8-10) Last Admin: 01/16/18 19:01 Dose: 20 mg Oxycodone HCl (Oxycodone Immediate Release Tab) 10 mg PO Q6 PRN PRN Reason: break through pain Last Admin: 01/16/18 22:01 Dose: 10 mg - Labs Labs: 01/13/18 11:24 01/15/18 11:25 - Head Exam Head Exam: ATRAUMATIC - Eye Exam Eye Exam: Normal appearance - ENT Exam ENT Exam: Mucous Membranes Dry - Respiratory Exam Respiratory Exam: NORMAL BREATHING PATTERN - Cardiovascular Exam Cardiovascular Exam: +S1, +S2 - GI/Abdominal Exam GI & Abdominal Exam: Normal Bowel Sounds Assessment and Plan (1) Renal cancer Assessment & Plan: with lung metastasis would benefit from outpatient immunotherapy to get an opinion at [facility] [place] and may wish to be treated locally with me outpatient f/u Status: Acute (2) Anemia Assessment & Plan: anemia of chronic disease Status: Acute
--- NOTE | 2018-01-16 22:46 | CP.PCM.PN ---
Subjective - Date & Time of Evaluation Date of Evaluation: 01/16/18 Time of Evaluation: 20:00 - Subjective Subjective: Has pain in feet. Objective - Vital Signs/Intake and Output Vital Signs (last 24 hours): Temp Pulse Resp BP Pulse Ox 98.0 F 86 20 119/74 95 01/16/18 15:00 01/16/18 15:00 01/16/18 15:00 01/16/18 15:00 01/16/18 15:00 Intake and Output: 01/16/18 01/17/18 18:59 06:59 Intake Total 500 Balance 500 - Medications Medications: Current Medications Aspirin (Ecotrin) 81 mg PO DAILY [facility] Last Admin: 01/16/18 09:57 Dose: 81 mg Enoxaparin Sodium (Lovenox) 40 mg SC DAILY [facility] Last Admin: 01/16/18 09:55 Dose: 40 mg Famotidine (Pepcid) 20 mg PO Q12H [facility] Last Admin: 01/16/18 22:02 Dose: 20 mg Furosemide (Lasix) 40 mg PO DAILY [facility] Last Admin: 01/16/18 09:58 Dose: 40 mg Gabapentin (Neurontin) 100 mg PO BID [facility] Last Admin: 01/16/18 17:51 Dose: 100 mg Lactulose (Enulose) 20 gm PO DAILY [facility] Last Admin: 01/16/18 10:05 Dose: 20 gm Lidocaine (Lidocaine 5%) 0 gm TOP BID [facility] Last Admin: 01/16/18 18:22 Dose: 1 applic Lisinopril (Zestril) 10 mg PO DAILY [facility] Last Admin: 01/16/18 09:55 Dose: 10 mg Oxycodone HCl (Oxycodone Immediate Release Tab) 20 mg PO Q6 PRN PRN Reason: Pain, severe (8-10) Last Admin: 01/16/18 19:01 Dose: 20 mg Oxycodone HCl (Oxycodone Immediate Release Tab) 10 mg PO Q6 PRN PRN Reason: break through pain Last Admin: 01/16/18 22:01 Dose: 10 mg - Labs Labs: 01/13/18 11:24 01/15/18 11:25 - Head Exam Head Exam: ATRAUMATIC - Eye Exam Eye Exam: Normal appearance - ENT Exam ENT Exam: Mucous Membranes Dry - Respiratory Exam Respiratory Exam: NORMAL BREATHING PATTERN - Cardiovascular Exam Cardiovascular Exam: +S1, +S2 - GI/Abdominal Exam GI & Abdominal Exam: Normal Bowel Sounds Assessment and Plan (1) Renal cancer Assessment & Plan: with lung metastasis would benefit from outpatient immunotherapy to get an opinion at [facility] [place] and may wish to be treated locally with me outpatient f/u Status: Acute (2) Anemia Assessment & Plan: anemia of chronic disease Status: Acute
[2018-01-17 00:41] VITALS: BP 118/72; PULSE 91; TEMP 98.2
[2018-01-17] MEDS: oxyCODONE 10 mg Immediate Release Tab PO PRN ×2 (01:05→04:09)
[2018-01-17 12:05] VITALS: O2SAT 95
[2018-01-19 16:43] LABS: ALDO/PRA RATIO 0.5 Ratio (0.9-28.9)
--- NOTE | 2018-01-24 09:27 | DS ---
HISTORY OF PRESENT ILLNESS: The patient was admitted to the hospital, complaining of swelling of lower extremity, weakness, fatigue, and shortness of breath. The patient is obese. The patient has kidney cancer, getting chemotherapy. PHYSICAL EXAMINATION: GENERAL: The patient is awake, alert, and oriented. VITAL SIGNS: Temperature 98, pulse 90. HEENT: Within normal limits. NECK: Supple. CHEST: Symmetrical. HEART: Regular. ABDOMEN: Soft. EXTREMITIES: Bilateral edema 3+. PLAN: The patient is to get bedrest. He is on diuresis. Gradual improvement, physical therapy. Discharged to be followed as an outpatient. DIAGNOSES: Kidney cancer, chronic obstructive pulmonary disease, obstructive sleep apnea, . Dc Fofana MD
== END 2018-01-17 05:50 | disposition home or self-care (01) | DRG 687 ==
LOC: C.ER 06:48 → C.9E 14:15 → C.3T 15:02
PROVIDERS: ADMIT Internal Medicine Pulmonary Disease; ATTEND Internal Medicine Pulmonary Disease
DX: C64.9 Malignant neoplasm of unspecified kidney, except renal pelvis (principal); I13.0 Hypertensive heart and chronic kidney disease with heart failure and stage 1 through stage 4 chronic kidney disease, or unspecified chronic kidney disease; L03.116 Cellulitis of left lower limb; L03.115 Cellulitis of right lower limb; C78.00 Secondary malignant neoplasm of unspecified lung; Z68.42 Body mass index [BMI] 45.0-49.9, adult; G89.29 Other chronic pain; G47.33 Obstructive sleep apnea (adult) (pediatric); E88.81 Metabolic syndrome and other insulin resistance; E86.0 Dehydration; E78.5 Hyperlipidemia, unspecified; E66.01 Morbid (severe) obesity due to excess calories; E11.22 Type 2 diabetes mellitus with diabetic chronic kidney disease; E11.51 Type 2 diabetes mellitus with diabetic peripheral angiopathy without gangrene; I50.9 Heart failure, unspecified; I87.2 Venous insufficiency (chronic) (peripheral); J44.9 Chronic obstructive pulmonary disease, unspecified; K59.03 Drug induced constipation; N18.3 Chronic kidney disease, stage 3 (moderate); R29.6 Repeated falls; Z87.891 Personal history of nicotine dependence; Z90.5 Acquired absence of kidney; D63.8 Anemia in other chronic diseases classified elsewhere; B19.20 Unspecified viral hepatitis C without hepatic coma; Z51.5 Encounter for palliative care